=== PATIENT | male | born 1965 | race Caucasian/White ===

== ENCOUNTER 2017-04-02 17:00 | Outpatient (RCR) | payer BC, SELFPAY | END 2017-04-02 17:01 | disposition home or self-care (01) | LOC: PT 17:00 | PROVIDERS: Family Provider Family Medicine; PCP Family Medicine; Visit Provider Orthopaedic Surgery | DX: M25.511 Pain in right shoulder (principal) | CPT/HCPCS: 97010; 97014; 97016; 97033; 97035; 97110; G0283 ==

== ENCOUNTER → 2017-12-09 09:45 | Outpatient (CLI) | payer BC, SELFPAY ==
--- NOTE | 2017-12-09 09:51 | NVE_ITS ---
Venous Exam Indications: 782.3 Edema. IMPRESSIONS 1. There is no evidence of significant Reflux. 2. No evidence of deep or superficial vein thrombosis involving the right lower extremity Right lower extremity venous duplex evaluation. Doppler flow study including spectral analysis, color and kowalski scale imaging. Location: Vascular laboratory. Patient status: Outpatient. CRITICAL FINDINGS - Reported to: ZO - Read back and verified. - 12/09/17 - 1015 - NONE Tables: Venous flow and imaging: + +-------+ + Location Overall Flow properties + +-------+ + Right common femoral Patent Normal phasicity; spontaneous; normal augmentation; compressible + +-------+ + Right saphenofemoral junction Patent Compressible + +-------+ + Right profunda femoral Patent Compressible + +-------+ + Right femoral Patent Normal phasicity; spontaneous; normal augmentation; compressible + +-------+ + Right greater saphenous Patent Normal phasicity; spontaneous; normal augmentation; compressible + +-------+ + Right popliteal Patent Normal phasicity; spontaneous; normal augmentation; compressible + +-------+ + Right posterior tibial Patent Compressible + +-------+ + Right peroneal Patent Compressible + +-------+ + Right gastrocnemius Patent Compressible + +-------+ + Right soleal Patent Compressible + +-------+ + (Report amended ) Electronically signed by: Td Avilez [id number]
--- NOTE | 2017-12-09 10:22 | XR_ITS ---
XR knee RT 3V Ordering Physician: Dominique Darling Patient Age: 52 years: Male HISTORY: ITS.REASON: SWELLING RT KNEE. No trauma. TECHNIQUE: 3 views right knee COMPARISON :None FINDINGS There appears to be soft tissue swelling anterior to patellar tendon and possibly at the patellar tendon itself. Does the patient worked on these. Requires clinical correlation. Appearance suggestive of soft tissue inflammation or or fluid. Pre-Patellar inflammation or possibly bursitis in this region would be suspect particularly if the patient works on these . The joint spaces fairly well maintained but with borderline narrowing at the lateral compartment. Mild sharpening the joint margins.. Tiny pinpoint osseous density likely related to developing marginal osteophyte noted off the medial margin of the medial tibial plateau These above features may reflect some very early degenerative change at the knee. Overall Unimpressive radiographically but noted Bones well mineralized. No erosive changes. No fracture. No acute findings. Patella unremarkable on lateral view . No knee joint effusion evident at suprapatellar bursa IMPRESSION: . 1.. Soft tissue swelling anterior at the knee, most evident overlying the patellar tendon & tibial tubercle. Likely soft tissue inflammation And/or possible bursitis in this region.. Does the patient worked on his knees?? 2. No fracture. No acute osseous findings. Borderline narrowing lateral compartment No knee joint effusion.
== END ==
PROVIDERS: PCP Nurse Practitioner Family; Visit Provider Nurse Practitioner Family
DX: M79.89 Other specified soft tissue disorders (principal); M25.461 Effusion, right knee
CPT/HCPCS: 73562; 93971

== ENCOUNTER 2019-12-13 14:11 | Emergency (ER) | payer BC, SELFPAY ==
[2019-12-13 14:14] VITALS: BP 170/108; PULSE 74; RESP 18; O2SAT 99; BMI 22.9
--- NOTE | 2019-12-13 14:14 | XR_ITS ---
PROCEDURE: XR HAND LT MIN 3V CLINICAL INDICATION: partial amputation COMPARISON: No exams were available for comparison FINDINGS: There is a surgical dressing seen wrapped around the thumb. There is in incomplete fracture distal shaft of the distal phalanx just proximal to the terminal tuft with tiny bone fragments within the soft tissues and this may be secondary to a chain saw or hand saw incident. There is apparent laceration to the soft tissues of the volar surface of the thumb. There is an additional tiny corner chip fracture at the base of the distal phalanx as well. This could be a non recent fracture however. First metacarpal and proximal phalanx appear intact. The remaining metacarpals in all phalanges are intact. IMPRESSION: Comminuted fracture and evidence of soft tissue injury involving the distal phalanx of the thumb Dictated by: Dr. Darrion Cuenca MD 12/13/2019 14:41 Dr. Darrion Cuenca MD in [place] 12/13/2019 14:41
--- NOTE | 2019-12-13 14:38 | HMH.EDGENADL ---
ED Disposition Clinical Impression: Laceration, Avulsion of skin Disposition: Home, Self-Care Condition on Discharge: Good Additional Instructions: Dress the wound with wet to dry dressings 2 times per day (see instructions). Take the keflex to prevent infection. Follow up with Dr. [facility] - call [phone] to make an appointment. Return with any concerns or signs of infection. Prescriptions: cephALEXin [Keflex 500mg Cap] 500 mg PO QID 7 Days #28 cap Prescription Printed Hydrocodone/Acetaminophen [Bokeelia 5-325 Tablet] 1 each PO NEEDED PRN 2 Days #4 tab PRN Reason: Severe Pain Prescription Printed Referrals: Giovanny Delacruz MD [Primary Care Provider] - - Critical Care Critical Care Time: No Attestation: On 12/13/19, the high probability of a clinically significant, sudden or life threatening deterioration of the following system(s) required my full and direct attention, intervention and personal management. The time I documented below is in addition to time spent performing reported procedures but includes the following listed in this critical care notation. Medical Decision Making - Medical Records Medical records reviewed: Yes: I reviewed the patient's medical records. - Rafiq Inquiry Pt receiving controlled substance: No Vital Signs: 12/13/19 14:14 12/13/19 14:41 12/13/19 15:10 Temperature Temperature Source Pulse Rate Pulse Rate [Right Brachial] 74 67 61 Respiratory Rate 18 Blood Pressure Blood Pressure [Right Arm] 170/108 H 162/104 H 151/89 H Blood Pressure Mean [Right Arm] 128 123 109 Blood Pressure Source Blood Pressure Source [Right Arm] Automatic Cuff Automatic Cuff Automatic Cuff Blood Pressure Position Blood Pressure Position [Right Arm] Sitting Sitting Sitting 02 Sat by Pulse Oximetry 99 97 97 Oxygen Delivery Method Room Air Room Air 12/13/19 16:44 12/13/19 16:45 Temperature 97.8 F Temperature Source Oral Pulse Rate 67 Pulse Rate [Right Brachial] 64 Respiratory Rate 16 Blood Pressure 125/92 H Blood Pressure [Right Arm] 125/92 H Blood Pressure Mean [Right Arm] 103 Blood Pressure Source Automatic Cuff Blood Pressure Source [Right Arm] Automatic Cuff Blood Pressure Position Sitting Blood Pressure Position [Right Arm] Sitting 02 Sat by Pulse Oximetry 98 Oxygen Delivery Method Room Air Room Air Orders (Tests/Meds): ED MEDICATIONS Discontinued Medications Generic Name Dose Route Start Last Admin Trade Name Shanae PRN Reason Stop Dose Admin Hydrocodone Bitart/Acetaminophen 1 tab 12/13/19 14:15 12/13/19 14:25 Hydrocodone/Apap 5/325 Mg Tablet PO 12/13/19 14:16 1 tab ONCE ONE Administration Cefazolin Sodium 2 gm/ Sodium 100 mls @ 200 mls/hr 12/13/19 14:15 12/13/19 14:26 Chloride IV 12/13/19 14:44 200 mls/hr ONCE ONE Administration Protocol Medical Decision Narrative: The patient is a 54 year old male who presents to the ED with left finger laceration. He is awake and alert. Tetanus UTD. Given 5 mg norco PO for pain. He has a large avulsion of soft tissue on the distal left thumb without involvement of the nail bed. He was given 2 grams of ancef for possible open fracture. X-ray of the hand was obtained and showed a comminuted distal phalanx fracture underlying the soft tissue injury. Discussed this case with hand surgery button riveter at , Dr. Abdul, who recommends closure here in the ED, placing the patient on keflex, and following up in clinic in 2 days. Discussed with patient who is in agreement. Laceration was repaired by myself - see note for details. Discharged home in good condition. General Adult HPI - General Chief complaint: Wound/Laceration Stated complaint: laceration Time Seen by Provider: 12/13/19 14:14 Mode of Arrival: Ambulatory Limitations: No Limitations Description of Symptoms (Recalled from ER Triage Doc. by RN): Patient reports he cut his left thumb with his a t
[2019-12-13 14:41] VITALS: BP 162/104; PULSE 67; O2SAT 97
[2019-12-13 15:10] VITALS: BP 151/89; PULSE 61; O2SAT 97
--- NOTE | 2019-12-13 15:22 | PC.NURSE ---
at bedside suturing.
--- NOTE | 2019-12-13 15:51 | PC.NURSE ---
v/s delayed due to suturing
[2019-12-13 16:44] VITALS: BP 125/92; PULSE 67; RESP 16; TEMP 36.6; O2SAT 98
[2019-12-13 16:45] VITALS: BP 125/92; PULSE 64; O2SAT 98
== END 2019-12-13 17:04 | disposition home or self-care (01) ==
PROVIDERS: Emergency Provider Emergency Medicine; PCP Family Medicine
DX: S61.012A Laceration without foreign body of left thumb without damage to nail, initial encounter (principal); W31.2XXA Contact with powered woodworking and forming machines, initial encounter; Y92.89 Other specified places as the place of occurrence of the external cause; Z88.0 Allergy status to penicillin; Z88.5 Allergy status to narcotic agent
CPT/HCPCS: 12001; 73130; 96374; 99283

== ENCOUNTER → 2020-02-22 18:27 | Outpatient (CLI) | payer BC, SELFPAY ==
--- NOTE | 2020-02-22 18:37 | XR_ITS ---
PROCEDURE: XR SHOULDER RT MIN 2V CLINICAL INDICATION: SHOULDER PAIN COMPARISON: No exams were available for comparison FINDINGS: No fracture or dislocation. No lytic or blastic change. There is normal mineralization. There postsurgical changes with anchor screws at the acromion and proximal humerus. Lucency is noted in the a acromion distally and may be due to surgical defect. There is some faint calcification overlying the humeral head suggesting calcific tendinitis. Mild calcification noted along the inferior aspect of the neck of the acromion. IMPRESSION: As above, postsurgical change, no acute finding, possible calcific tendinitis. There is some calcification along the proximal aspect of the acromion possibly related to periosteal reaction etiology indeterminate. There are no previous exams available for comparison. CT may provide further evaluation Dictated by: Juan Shaver MD 02/23/2020 05:56 Juan Shaver MD in [place] 02/23/2020 05:56
== END ==
PROVIDERS: PCP Family Medicine; Visit Provider Family Medicine
DX: M25.511 Pain in right shoulder (principal); Z98.890 Other specified postprocedural states
CPT/HCPCS: 73030

== ENCOUNTER → 2020-04-11 07:42 | Outpatient (CLI) | payer BC, SELFPAY ==
--- NOTE | 2020-04-11 07:42 | MR_ITS ---
PROCEDURE: MR SHOULDER RT WO CON CLINICAL INDICATION: evaluate for rotator cuff tear Hx right shoulder surgery x20yrs ago on rotator cuff. Pt had a tumor removed between back and shoulder x3yrs ago. Rt shoulder pain with no strength. Pain when raising arm above head. No injury. Prior x-ray 02-22-20 COMPARISON: CR XR SHOULDER RT MIN 2V from 02/22/2020 TECHNIQUE: Routine multiplanar multi echo sequences are performed without gadolinium enhancement. FINDINGS: There are postsurgical changes with extensive artifact. Metallic anchors are present at the a chromium and the proximal humerus causing extensive artifact. There does not appear to be any evidence of complete rotator cuff tear with musculotendinous retraction. There is mild thickening of the subscapularis tendon consistent with tendinopathy/tendinosis. Bicipital tendon is in place within the bicipital groove. No obvious labral tear. Mild osteoarthritic changes are present at the glenohumeral joint. On the radiograph there was questionable periosteal reaction along the base of the acromion. This area is not well delineated due to overlying artifact. IMPRESSION: Extensive artifact from postsurgical changes. There does not appear to be a complete rotator cuff tear. Tendinopathy/tendinosis noted in the subscapularis tendon. Small joint effusion with mild osteoarthritic change Dictated by: Juan Shaver MD 04/13/2020 09:09 Juan Shaver MD in [place] 04/13/2020 09:09
== END ==
PROVIDERS: PCP Family Medicine; Visit Provider Orthopaedic Surgery
DX: M25.511 Pain in right shoulder (principal); G89.29 Other chronic pain
CPT/HCPCS: 73221

== ENCOUNTER → 2020-05-10 09:51 | Outpatient (CLI) | payer BC, SELFPAY ==
--- NOTE | 2020-05-10 09:59 | XR_ITS ---
PROCEDURE: XR SHOULDER RT MIN 2V CLINICAL INDICATION: right shoulder pain COMPARISON: CR XR SHOULDER RT MIN 2V from 02/22/2020 FINDINGS: Postsurgical changes with the prior rotator cuff repair is noted. There is minor cortical irregularity of the acromion with surgical anchors noted. No evidence of acute fractures or dislocations. Bone density is normal. Minor degenerative changes of the glenohumeral joint. No significant soft tissue abnormality. Visualized right hemithorax is unremarkable. IMPRESSION: Postsurgical changes in the right shoulder joint. Minor cortical irregularity of the acromion with surgical anchors noted. This may be related to prior surgery versus degenerative changes. Dictated by: Oneida Mcclendon 05/10/2020 13:50 Oneida Mcclendon in [place] 05/10/2020 13:50
--- NOTE | 2020-05-10 09:59 | XR_ITS ---
PROCEDURE: XR SHOULDER LT MIN 2V CLINICAL INDICATION: Lt shoulder pain COMPARISON: CR XR SHOULDER RT MIN 2V from 02/22/2020 FINDINGS: No acute fractures or dislocations. There are few lucencies noted in the left humeral head. These may represent subchondral cystic changes. No periarticular calcification. Acromioclavicular joint is unremarkable. Bone density is normal. Visualized left hemithorax is unremarkable. IMPRESSION: Few lucencies noted in the humeral head, may be related to degenerative changes.Correlation with clinical history of surgery of the left shoulder joint suggested. Dictated by: Oneida Mcclendon 05/10/2020 10:43 Oneida Mcclendon in [place] 05/10/2020 10:43
== END ==
PROVIDERS: PCP Family Medicine; Visit Provider Orthopaedic Surgery
DX: M25.511 Pain in right shoulder (principal); M25.512 Pain in left shoulder
CPT/HCPCS: 73030

== ENCOUNTER 2020-05-10 10:24 | Outpatient (RCR) | payer BC, SELFPAY | END 2020-05-10 11:20 | disposition home or self-care (01) | LOC: OT 10:24 | PROVIDERS: Visit Provider Orthopaedic Surgery | DX: G56.03 Carpal tunnel syndrome, bilateral upper limbs (principal) | CPT/HCPCS: 97763 ==

== ENCOUNTER 2020-09-11 09:12 | Emergency (ER) | payer BC, SELFPAY ==
[2020-09-11 09:29] VITALS: PULSE 66; RESP 14; TEMP 36.9; O2SAT 99; BMI 23.6
[2020-09-11 09:38] VITALS: BP 000/00; PULSE 66; RESP 12; TEMP 36.9
--- NOTE | 2020-09-11 10:39 | HMH.EDUTC ---
[facility] [place] Clinical Impression: Exposure to COVID-19 virus Disposition: Home, Self-Care Condition on Discharge: Good Instructions: Preventing the Spread of Coronavirus Discharge Instructions Additional Instructions: Drink plenty of fluids. Take tylenol for pain or fever. Return if you begin to have difficulty breathing. Follow up with your regular doctor. GO TO THE ER FOR ANY WORSENING SYMPTOMS Referrals: Socorro Mast MD [Primary Care Provider] - Time of Disposition: 10:39 Medical Decision Making - Medical Records Medical records reviewed: No: I reviewed the patient's medical records. - Rafiq Inquiry Pt receiving controlled substance: No Vital Signs: 09/11/20 09:29 09/11/20 09:38 Temperature 98.5 F 98.5 F Temperature Source Oral Pulse Rate 66 Pulse Rate [Left] 66 Respiratory Rate 14 12 Blood Pressure 000/00 L 02 Sat by Pulse Oximetry 99 [facility] [place] HPI - General Stated complaint: Covid Test Time Seen by Provider: 09/11/20 09:35 Mode of Arrival: Ambulatory Source of Information: Patient Limitations: No Limitations Description of Symptoms (Recalled from Triage Doc. by RN): pt was directly exposed to covid positive pt last tu. pt is asymptomatic. HEENT Symptoms (Recalled from RN notes): No Resp Symptoms (Recalled from RN notes): No Skin Symptoms (Recalled from RN notes): No MS Symptoms (Recalled from RN notes): No Functional Status (Recalled from RN notes): na - History of Present Illness Provider Complaint: She is here to have a covid test after an exposure. She denies any symptoms so far. - Related Data Home Medications Medication Instructions Recorded Confirmed No Known Home Medications 05/10/20 05/10/20 Allergies Allergy/AdvReac Type Severity Reaction Status Date / Time Penicillins Allergy Unknown Verified 05/10/20 09:26 morphine [MORPHINE] AdvReac Unknown NA-NAUSEA Verified 05/10/20 09:26 - Worker's Comp Is this a Worker's Comp case?: No [facility] History - Hepatitis A Screen Drug use history?: No High risk sexual behaviors?: No History of sexually transmitted infection?: No Currently employed?: No Childcare worker?: No Do you have indoor plumbing?: Yes Do you have electricity?: Yes Attestation statement:: This patient has been screened for Hepatitis A risk factors. I have reviewed the patient's past medical history: Yes Other Surgeries: Yes: Colonoscopy - Social History Smoking Status: Never smoker Alcohol Intake: never Occupational Status: retired Housing: house Household Members: spouse Family Hx:: No significant family history ROS Obtained: Yes All systems reviewed & no additional complaints - Constitutional Constitutional: Reports system reviewed and no additional complaints, except as docu - Eyes Eyes: Reports system reviewed and no additional complaints, except as docu - ENT Ears, Nose, Mouth, and Throat: Reports system reviewed and no additional complaints, except as docu - Cardiovascular Cardiovascular: Reports system reviewed and no additional complaints, except as docu - Respiratory Respiratory: Reports system reviewed and no additional complaints, except as docu - Gastrointestinal Gastrointestingal: Reports: system reviewed and no additional complaints, except as docu Physical Exam - General General appearance: alert, in no apparent distress - Head Head exam: atraumatic, normocephalic, normal inspection - Eye Eye exam: Present: normal appearance, PERRL, EOMI - ENT ENT exam: Present: normal exam, normal oropharynx, mucous membranes moist, TM's normal bilaterally, normal external ear exam - Neck Neck exam: Present: normal inspection, full ROM, trachea midline. Absent: meningismus, lymphadenopathy - Chest Chest inspection: Present: normal inspection, symmetric chest wall rise. Absent: tenderness - Respiratory Respiratory exam: Present: normal lung sounds bilaterally. Absent: respiratory distress
== END 2020-09-11 10:48 | disposition home or self-care (01) ==
PROVIDERS: Emergency Provider Nurse Practitioner Family; PCP Family Medicine
DX: Z20.822 Contact with and (suspected) exposure to COVID-19 (principal); Z88.0 Allergy status to penicillin; Z88.5 Allergy status to narcotic agent
CPT/HCPCS: 99202; G0463; U0003

== ENCOUNTER 2020-10-29 15:58 | Emergency (ER) | payer BC, SELFPAY ==
[2020-10-29 17:39] VITALS: BP 169/106; PULSE 61; RESP 16; TEMP 36.7; O2SAT 98; BMI 23.6
--- NOTE | 2020-10-29 17:44 | CT_ITS ---
PROCEDURE INFORMATION: Exam: CT Head Without Contrast Exam date and time: 10/29/2020 5:44 PM Age: 55 years old Clinical indication: Pain; Headache not specified; Additional info: Headache went to eye Dr today and had eyes dilated TECHNIQUE: Imaging protocol: Computed tomography of the head without contrast. Radiation optimization: All CT scans at this facility use at least one of these dose optimization techniques: automated exposure control; mA and/or kV adjustment per patient size (includes targeted exams where dose is matched to clinical indication); or iterative reconstruction. COMPARISON: [facility] CT CERVICAL SPINE W/O CONT 02/23/2015 8:31 AM FINDINGS: Brain: Normal. No hemorrhage. Unremarkable white matter. No mass effect. Cerebral ventricles: No ventriculomegaly. Paranasal sinuses: Visualized sinuses are unremarkable. No fluid levels. Mastoid air cells: Visualized mastoid air cells are well aerated. Vasculature: Intraranial artery density is normal. Bones/joints: Unremarkable. No acute fracture. Soft tissues: Unremarkable. IMPRESSION: No acute intracranial abnormality.
--- NOTE | 2020-10-29 17:44 | ECG_ITS ---
APPROVED REPORT Exam: Resting ECG HR:63 bpm ECG Measurements Heart Rate 63 AXES MI 152 P 68 QRSd 100 QRS 63 QT 390 T 19 QTc 399 Conclusion Normal sinus rhythm Minimal voltage criteria for LVH, may be normal variant Borderline ECG Electronically signed by : Giovanny Limon MD 10/30/2020 08:56:02
--- NOTE | 2020-10-29 17:44 | XR_ITS ---
PROCEDURE INFORMATION: Exam: XR Chest Exam date and time: 10/29/2020 5:44 PM Age: 55 years old Clinical indication: Pain; Chest pressure TECHNIQUE: Imaging protocol: XR of the chest. Views: 1 view. COMPARISON: CR CXR CHEST(2 VIEWS-NOT PORTABLE) 10/24/2015 8:47 AM FINDINGS: Lungs: Unremarkable. No consolidation. Pleural spaces: Unremarkable. No pleural effusion. No pneumothorax. Heart/Mediastinum: Unremarkable. No cardiomegaly. Bones/joints: There is an age indeterminate superior endplate compression deformity of T10. This patient is status post right rotator cuff surgery. IMPRESSION: No acute findings.
[2020-10-29 18:05] LABS: Basophils % 0.4 % (0.1-2.0); Eosinophils # 0.2 K/mm3 (0.0-0.4); Eosinophils % 2.3 % (0.1-12.0); Hematocrit 46.8 % (42.0-52.0); Hemoglobin 15.3 g/dL (14.1-18.0); Lymphocytes # 4.7 K/mm3 (0.7-4.5); Mean Corpuscular HGB Conc 32.7 g/dL (31.8-35.4); Mean Corpuscular Volume 94.9 fl (80-94); Mean Platelet Volume 7.2 fl (7.4-10.4); Monocytes # 0.5 K/mm3 (0.1-1.0); Monocytes % 6.7 % (1.7-9.3); Neutrophils # 2.5 K/mm3 (1.8-7.8); Neutrophils % 31.5 % (37.0-80.0); Platelet Count 299 K/mm3 (142-424); Red Blood Count 4.93 M/mm3 (4.60-6.20); Red Cell Distribution Width 12.1 % (11.5-17.5); White Blood Count 7.9 K/mm3 (4.8-10.8)
[2020-10-29 18:09] LABS: MANUAL DIFFERENTIAL MANUAL DIFFERENTIAL (MANUAL DIFF)
[2020-10-29 18:12] LABS: Chloride 104 mmol/L (98-107); Potassium 4.1 mmoL/L (3.5-5.1); Sodium 138 mmol/L (136-145)
[2020-10-29 18:14] LABS: Alanine Aminotransferase 16 U/L (12-78); Aspartate Amino Transferase 22 U/L (17-59); Blood Urea Nitrogen 17 mg/dl (9-20); Creatinine Clearance Estimated 106 mL/min (50-200); Estimated Glomerular Filt Rate 100 ml/min (>60); GFR (African American) 121 ML/MIN (>60)
[2020-10-29 18:15] LABS: Albumin Level 3.5 g/dl (3.5-5.0); Albumin/Globulin Ratio 1.1 (1.1-1.8); Alkaline Phosphatase 73 U/L (38-126); Anion Gap 10.1 mEq/L (5-15); Bilirubin,Total 0.3 mg/dl (0.2-1.3); Calcium 8.8 mg/dl (8.4-10.2); Carbon Dioxide 28 mmol/L (22.0-30.0); Globulin 3.1 g/dL (1.3-3.2); Glucose 95 mg/dl (74-100); Total Protein,Serum 6.6 g/dl (6.3-8.2)
[2020-10-29 18:20] LABS: Eosinophils % 3 % (0-3); Lymphocytes % 42 % (10-50); Monocytes % 3 % (2-9); Neutrophils % 52 % (42-76); Total Cells Counted 100
[2020-10-29 18:21] LABS: Platelet Estimate Normal; RBC Morphology Normal
[2020-10-29 18:29] LABS: Troponin I < 0.01 ng/ml (0.00-0.034)
--- NOTE | 2020-10-29 19:26 | PC.NURSE ---
on phone with dr arias @ this time
[2020-10-29 19:38] LABS: Adenovirus,PCR Not Detected (NotDetected); Bordetella Pertussis Not Detected (NotDetected); Chlamydophila Pneumoniae, PCR Not Detected (NotDetected); Coronavirus 19, PCR Not Detected (NotDetected); Coronavirus 229E Not Detected (NotDetected); Coronavirus NL63 Not Detected (NotDetected); Coronavirus OC43 Not Detected (NotDetected); Coronovirus HKU1,PCR Not Detected (NotDetected); Human Metapneumovirus Not Detected (NotDetected); Influenza A, PCR Not Detected (NotDetected); Influenza AH1, 2009 Not Detected (NotDetected); Influenza AH1, PCR Not Detected (NotDetected); Influenza AH3,PCR Not Detected (NotDetected); Influenza B, PCR Not Detected (NotDetected); Mycoplasma Pneumoniae, PCR Not Detected (NotDetected); Parainfluenza 1, PCR Not Detected (NotDetected); Parainfluenza 2, PCR Not Detected (NotDetected); Parainfluenza 3, PCR Not Detected (NotDetected); Parainfluenza 4, PCR Not Detected (NotDetected); Respiratory Syncytial Virus Not Detected (NotDetected); Rhinovirus/Enterovirus Not Detected (NotDetected)
--- NOTE | 2020-10-29 19:57 | HMH.EDGENADL ---
ED Disposition Clinical Impression: Uveitis of left eye, Folliculitis, Fatigue after COVID-19 vaccination Disposition: Home, Self-Care Condition on Discharge: Fair Instructions: DI for Muscle Weakness, DI for Folliculitis, DI for Anterior Uveitis Prescriptions: Sulfamethoxazole/Trimethoprim [Bactrim DS tablet] 1 each PO BID 7 Days #14 tab Prescription Printed Referrals: Socorro Mast MD [Primary Care Provider] - 10/31/20 - Critical Care Critical Care Time: No Attestation: On 10/29/20, the high probability of a clinically significant, sudden or life threatening deterioration of the following system(s) required my full and direct attention, intervention and personal management. The time I documented below is in addition to time spent performing reported procedures but includes the following listed in this critical care notation. Medical Decision Making - Medical Records Medical records reviewed: Yes: I reviewed the patient's medical records. - Rafiq Inquiry Pt receiving controlled substance: No Vital Signs: 10/29/20 17:39 Temperature 98.1 F Temperature Source Oral Pulse Rate [Radial] 61 Respiratory Rate 16 Blood Pressure [Right Arm] 169/106 H Blood Pressure Mean [Right Arm] 127 Blood Pressure Position [Right Arm] Sitting 02 Sat by Pulse Oximetry 98 Oxygen Delivery Method Room Air - Lab Data Lab Results 10/29/20 17:54: WBC 7.9, RBC 4.93, Hgb 15.3, Hct 46.8, MCV 94.9 H, MCH 31.0, MCHC 32.7, RDW 12.1, Plt Count 299, MPV 7.2 L, Neut % (Auto) 31.5 L, Lymph % (Auto) 59.0 H, [place] % (Auto) 6.7, Eos % (Auto) 2.3, Baso % (Auto) 0.4, Neut # (Auto) 2.5, Lymph # (Auto) 4.7 H, [place] # (Auto) 0.5, Eos # (Auto) 0.2, Baso # (Auto) 0.0, Total Counted 100, Neutrophils % (Manual) 52, Lymphocytes % (Manual) 42, Monocytes % (Manual) 3, Eosinophils % (Manual) 3, Platelet Estimate Normal, RBC Morphology Normal 10/29/20 17:54: Sodium 138, Potassium 4.1, Chloride 104, Carbon Dioxide 28, Anion Gap 10.1, BUN 17, Creatinine 0.80, Estimated Creat Clear 106, Estimated GFR 100, Est GFR ( Amer) 121, Glucose 95, Calcium 8.8, Total Bilirubin 0.3, AST 22, ALT 16, Alkaline Phosphatase 73, Troponin I < 0.01, Total Protein 6.6, Albumin 3.5, Globulin 3.1, Albumin/Globulin Ratio 1.1 Result diagrams: 10/29/20 17:54 10/29/20 17:54 Orders (Tests/Meds): ED MEDICATIONS Generic Name Dose Route Start Last Admin Trade Name Freq PRN Reason Stop Dose Admin Lactated Ringer's 1,000 mls @ 999 mls/hr 10/29/20 19:45 10/29/20 19:43 Lactated Ringer's 1000 Ml Bag IV 10/29/20 20:45 999 mls/hr .Q1H1M ALONZO Administration Discontinued Medications Generic Name Dose Route Start Last Admin Trade Name Freq PRN Reason Stop Dose Admin Ketorolac Tromethamine 30 mg 10/29/20 19:38 10/29/20 19:43 Ketorolac 30mg/Ml Vial IV 10/29/20 19:39 30 mg ONCE ONE Administration ORDERS Category Date Time Status Full Resp Panel w/COVID ([facility]) Routine Lab 10/29/20 19:30 Received Troponin I Q3H Lab 10/29/20 20:45 Ordered Troponin I Q3H Lab 10/29/20 23:45 Ordered No evidence of abnormality on chest x-ray or CT head Medical Decision Narrative: 55-year-old male who presents to the emergency department with multiple vague complaints. Patient has complaints of left eye pain, diffuse, itchy papular rash with evidence of drainage from some papules. Lethargy, fatigue, and general weakness as well as this ocular pain without swelling or vision change. Patient was seen by putty maker today, so they were called for full details of patient's visit. Patient appears to have evidence of uveitis for which she was prescribed steroid drops. Given this information as well as patient's vague complaints of weakness, fatigue, and general malaise, concern was given to autoimmune diseases. Evidence of abnormalities on CT head or chest x-ray, and labs are very benign aside from mild leukocytosis to 15 which could be related to new steroid drops versus
[2020-10-29 21:07] VITALS: BP 168/95; PULSE 61; RESP 14; TEMP 37.1
== END 2020-10-29 21:14 | disposition home or self-care (01) ==
PROVIDERS: Emergency Provider Emergency Medicine; PCP Family Medicine
DX: H20.012 Primary iridocyclitis, left eye (principal); T50.Z95A Adverse effect of other vaccines and biological substances, initial encounter; R53.83 Other fatigue; R06.02 Shortness of breath; R51.9 Headache, unspecified
CPT/HCPCS: 70450; 71045; 80053; 84484; 85007; 85025; 87581; 87632; 87798; 93005; 96365; 99283; C9803; U0003; U0005

== ENCOUNTER → 2020-12-26 07:32 | Outpatient (CLI) | payer BC, SELFPAY | PROVIDERS: Visit Provider Family Medicine | DX: R51.9 Headache, unspecified (principal); R50.9 Fever, unspecified; R53.82 Chronic fatigue, unspecified; M25.50 Pain in unspecified joint | CPT/HCPCS: 36415 ==

== ENCOUNTER 2021-12-23 09:48 | Emergency (ER) | payer BC, SELFPAY ==
[2021-12-23 10:45] VITALS: BP 128/87; PULSE 73; RESP 21; TEMP 36.7; O2SAT 99; BMI 24.3
[2021-12-23 11:05] LABS: UTC Influenza A Antigen Positive (Negative)
[2021-12-23 11:06] LABS: UTC Influenza B Antigen Negative (Negative)
--- NOTE | 2021-12-23 11:19 | EXP.UTC ---
Discharge Plan Disposition Patient Disposition: Home, Self-Care Condition: Good Prescriptions Prescriptions: New oseltamivir [Tamiflu] 75 mg capsule 75 mg PO BID 5 Days Qty: 10 0RF kaomqgswhaujizv-fawfujtjj-VU [Bromfed DM] 2-30-10 mg/5 mL syrup 10 ml PO Q6H PRN (Reason: cold symptoms and cough) Qty: 200 0RF ondansetron 4 mg tablet,disintegrating 4 mg PO Q8H PRN (Reason: nausea and vomiting) Qty: 10 0RF No Action sulfamethoxazole-trimethoprim 1 EACH tablet 1 each PO BID 7 Days Qty: 14 0RF Referrals Follow up/Referrals: Socorro Mast MD [Primary Care Provider] - See instructions Activity Restrictions/Add. Instructions Additional Instructions/Restrictions: Start Tamiflu today if you are going to take it. Discussed risk and possible benefits. Lots of rest Increase Fluids water, Gatorade, powerade, pedialyte,if /toddler/child Alternate Tylenol and / or ibuprofen as discussed for fever, aches, chills Follow up IMMEDIATELY with your family doctor for new or worsening Symptoms OR no noticeable improvement over the next 48-72 hours, 911 for difficulty or breathing You or your child area contagious until no fever, aches, chills for 24 hours with medication for symptoms Help Prevent the spread of influenza: ?Wash your hands often. Use soap and water. Wash your hands after you use the bathroom, change a child's diapers, or sneeze. Wash your hands before you prepare or eat food. Use gel hand cleanser that has 60% alcohol, when soap and water are not available. Do not touch your eyes, nose, or mouth unless you have washed your hands first. Cover your mouth when you sneeze or cough. Cough into a tissue or the bend of your arm. If you use a tissue, throw it away immediately and wash your hands. Clean shared items with a germ-killing bottle packing machine cleaner. Clean table surfaces, doorknobs, and light switches. Do not share towels, silverware, and dishes with people who are sick. Wash bed sheets, towels, silverware, and dishes with soap and water. Wear a mask over your mouth and nose if you are sick. The face mask may help protect others from becoming infected with the flu. Wear the mask when in common areas of your home or if you seek care with a healthcare provider. Stay away from others if you are sick. Stay at home until 24 hours after your fever and symptoms are gone. Clinical Impressions Clinical Impression: Influenza A Stand Alone Forms Stand Alone Forms: Work/School Release Instructions Patient Instructions: Influenza, DI for Influenza -- Adult Discharge ED Provider: Loli Chisholm [facility] [place] HPI General Stated complaint: NAGY, Chest congestion, BA Mode of Arrival: Ambulatory Source of Information: Patient Limitations: No Limitations Time Seen by Provider: 12/23/21 11:19 Description of Symptoms (Recalled from Triage Doc. by RN): PATIENT C/O FEVER, VOMITING, COUGH, CONGESTION AND BODY ACHES X 2 DAYS HEENT Symptoms (Recalled from RN notes): No Resp Symptoms (Recalled from RN notes): Yes Skin Symptoms (Recalled from RN notes): No MS Symptoms (Recalled from RN notes): No Functional Status (Recalled from RN notes): WNL History of Present Illness Provider Complaint: Patient states that for the last couple of days he has not been feeling well States that he has been having body aches, chills, headache N/V nd cough State that he took COVID test at home and it was negative worried he may have the flu Related Data Previous Rx's Medication Instructions Recorded sulfamethoxazole 800 1 each PO BID 7 days #14 tabs 10/29/20 mg-trimethoprim 160 mg tablet opapvlxmtsnywdb-oondxidkscqmhgw-CW 10 ml PO Q6H PRN cold symptoms and 12/23/21 2 mg-30 mg-10 mg/5 mL oral syrup cough #200 mL (Bromfed DM) ondansetron 4 mg disintegrating 4 mg PO Q8H PRN nausea and 12/23/21 tablet
[2021-12-23 11:38] VITALS: BP 128/87; PULSE 73; RESP 21; TEMP 36.7; O2SAT 99
== END 2021-12-23 11:42 | disposition home or self-care (01) ==
PROVIDERS: Emergency Provider Nurse Practitioner; PCP Family Medicine
DX: J10.1 Influenza due to other identified influenza virus with other respiratory manifestations (principal)
CPT/HCPCS: 87804; 99212; G0463

== ENCOUNTER 2022-01-07 07:58 | Emergency (ER) | payer BC, SELFPAY ==
[2022-01-07 08:15] VITALS: BP 138/94; PULSE 67; RESP 20; TEMP 36.7; O2SAT 99; BMI 22.4
--- NOTE | 2022-01-07 08:24 | EXP.UTC ---
Discharge Plan Disposition Patient Disposition: Home, Self-Care Condition: Good Prescriptions Prescriptions: New guaifenesin [Mucinex] 600 mg tablet extended release 12hr 600 mg PO BID PRN (Reason: cough) Qty: 20 0RF azithromycin [Zithromax Z-Patricio] 250 mg tablet See Rx Instructions .ROUTE .COMPLEX 5 Days Qty: 6 0RF Rx Instructions: For 250 mg dose pack: take 500 mg today (day 1), then 250 mg for 4 days (days 2-5) prednisone [prednisone] 20 mg tablet 20 mg PO BID 5 Days Qty: 10 0RF meclizine 25 mg tablet 25 mg PO TID PRN (Reason: dizziness) Qty: 15 0RF Referrals Follow up/Referrals: Socorro Mast MD [Primary Care Provider] - See instructions Activity Restrictions/Add. Instructions Additional Instructions/Restrictions: Start antibiotic today. Be sure to complete entire prescription even if feeling better Monitor temp. Tylenol every 4 hours as needed and / or ibuprofen every 6 hours as needed ( As long as your primary care physician has told you that it ok to take both. For fever/aches/pains ER if no less than 101 despite Tylenol or Motrin Humidifier/vaporizer or hot steamy shower Mucinex for your cough and chest congestion Be sure to drink lots of water. *Start steroid today. Helps with inflammation therefore, cough and wheezing. Follow directions on the package. Reviewed side effects. Patient reports taking them before. Follow up IMMEDIATELY for new or worsening of symptoms OR no noticeable improvement over the next 48-72 hours. 911 immediately for any life threatening symptoms such as chest pain or difficulty breathing Clinical Impressions Clinical Impression: Bronchitis Instructions Patient Instructions: DI for Vertigo, Vertigo, Acute Bronchitis Discharge ED [place]oli Chishol[place] [facility] [place] General Stated complaint: chest congestion, cough Time Seen by Provider: 01/07/22 08:24 History of Present Illness Provider Complaint: Patient states that he had the flu a couple weeks ago State that since he has been having chest congestion, cough, and yesterday he felt a little off balance and dizzy when he got out of bed then he felt OK and State that he hasnt done that since State that he just feels like he is congested in his chest and ears feel full and worried that he may have bronchitis or something Related Data Previous Rx's Medication Instructions Recorded azithromycin 250 mg tablet See Rx Instructions PO .COMPLEX 5 01/07/22 (Zithromax Z-Patricio) days #6 tabs guaifenesin 600 mg tablet, 600 mg PO BID PRN cough #20 tabs 01/07/22 extended release 12 hr (Mucinex) meclizine 25 mg tablet 25 mg PO TID PRN dizziness #15 tabs 01/07/22 prednisone 20 mg tablet 20 mg PO BID 5 days #10 tabs 01/07/22 Allergies Allergy/AdvReac Type Severity Reaction Status Date / Time Penicillins Allergy Unknown Verified 05/10/20 09:26 morphine [MORPHINE] AdvReac Unknown NA-NAUSEA Verified 05/10/20 09:26 [facility] Medical History (Updated 01/07/22 @ 08:56 by Loli Chisholm APRN) Finger fracture Migraine Surgical History History of repair of rotator cuff Social History (Updated 01/07/22 @ 08:32 by Rianna Mullins RN) Smoking Status: Never smoker alcohol intake: never current occupational status: retired and other Travel in the last 8 weeks: None household members: spouse housing: house ROS Obtained: Yes All systems reviewed & no additional complaints except as documented and Yes Systems reviewed as appropriate & no additional complaints except as documented Constitutional Constitutional: Reports system reviewed and no additional complaints, except as documented and Reports as per HPI ENT Ears, Nose, Mouth, and Throat: Reports system reviewed and no additional complaints, except as documented, Reports as per HPI and Reports dizziness (yesterday when he got out of bed thinks he miranda
[2022-01-07 08:42] VITALS: BP 138/94; PULSE 67; RESP 20; TEMP 36.7; O2SAT 99
[2022-01-07 08:47] LABS: Adenovirus,PCR Not Detected (NotDetected); Bordetella Pertussis Not Detected (NotDetected); Chlamydophila Pneumoniae, PCR Not Detected (NotDetected); Coronavirus 19, PCR Not Detected (NotDetected); Coronavirus 229E Not Detected (NotDetected); Coronavirus NL63 Not Detected (NotDetected); Coronavirus OC43 Not Detected (NotDetected); Coronovirus HKU1,PCR Not Detected (NotDetected); Human Metapneumovirus Not Detected (NotDetected); Influenza A, PCR Not Detected (NotDetected); Influenza AH1, 2009 Not Detected (NotDetected); Influenza AH1, PCR Not Detected (NotDetected); Influenza AH3,PCR Not Detected (NotDetected); Influenza B, PCR Not Detected (NotDetected); Mycoplasma Pneumoniae, PCR Not Detected (NotDetected); Parainfluenza 1, PCR Not Detected (NotDetected); Parainfluenza 2, PCR Not Detected (NotDetected); Parainfluenza 3, PCR Not Detected (NotDetected); Parainfluenza 4, PCR Not Detected (NotDetected); Respiratory Syncytial Virus Not Detected (NotDetected); Rhinovirus/Enterovirus Not Detected (NotDetected)
== END 2022-01-07 09:00 | disposition home or self-care (01) ==
PROVIDERS: Emergency Provider Nurse Practitioner; PCP Family Medicine
DX: R42 Dizziness and giddiness (principal); R09.89 Other specified symptoms and signs involving the circulatory and respiratory systems; R05.9 Cough, unspecified; R50.9 Fever, unspecified; Z20.822 Contact with and (suspected) exposure to COVID-19; G43.909 Migraine, unspecified, not intractable, without status migrainosus; Z79.52 Long term (current) use of systemic steroids; Z88.0 Allergy status to penicillin; Z88.5 Allergy status to narcotic agent
CPT/HCPCS: 87581; 87632; 87798; 99213; C9803; G0463; U0003; U0005

== ENCOUNTER 2023-05-16 15:12 | Outpatient (CLI) | payer BC, SELFPAY ==
--- NOTE | 2023-05-16 | CA_ITS ---
FINAL REPORT TECHNIQUE: Color Doppler, duplex Doppler and compression sonography of the left lower extremity deep venous systems was performed. CLINICAL HISTORY: injury of left calf while on a ladder.swelling with pain resolved COMPARISON: None FINDINGS: There is no evidence of deep venous thrombosis from the level of the groin to the calf. The veins are patent and compressible. IMPRESSION: No evidence of deep venous thrombosis left lower extremity. Reviewed, Interpreted and Dictated by Oziel Enriquez III, MD Transcribed by Ayleen Brink Authenticated and . [facility]
== END 2023-05-16 23:59 ==
LOC: RT 15:13
PROVIDERS: PCP Family Medicine; Visit Provider Nurse Practitioner
DX: M79.662 Pain in left lower leg (principal); R60.0 Localized edema; S89.92XA Unspecified injury of left lower leg, initial encounter
CPT/HCPCS: 93971

== ENCOUNTER 2023-06-11 10:43 | Outpatient (CLI) | payer BC, SELFPAY ==
--- NOTE | 2023-06-11 10:49 | XR_ITS ---
FINAL REPORT CLINICAL HISTORY: INTERNAL DERANGEMENT OF KNEE COMPARISON: None FINDINGS: LEFT KNEE 3 views of the left knee were obtained. There is no acute fracture or dislocation. Chondrocalcinosis is noted. The joint space is preserved. There is a moderate joint effusion. Soft tissues are unremarkable. IMPRESSION: No acute bony abnormality. Joint effusion with chondrocalcinosis. Reviewed, Interpreted and Dictated by Edmar Ledezma MD Transcribed by Jyotsna Hart Authenticated and [facility] [place] [place]
== END 2023-06-11 23:59 | disposition home or self-care (01) ==
LOC: RAD 10:44
PROVIDERS: PCP Nurse Practitioner; Visit Provider Nurse Practitioner
DX: M25.562 Pain in left knee (principal); M23.92 Unspecified internal derangement of left knee
CPT/HCPCS: 73562

== ENCOUNTER 2023-08-04 19:33 | Emergency (ER) | payer BC, SELFPAY ==
[2023-08-04] VITALS (8 sets, daily range): BP systolic 0–161; BP diastolic 0–102; PULSE 0–81; RESP 0–18; TEMP -17.7–36.3; O2SAT 0–100; BMI 24.3
--- NOTE | 2023-08-04 19:15 | ECG_ITS ---
APPROVED REPORT Exam: Resting ECG HR:74 bpm ECG Measurements Heart Rate 74 AXES TX 154 P 67 QRSd 96 QRS 39 QT 373 T 24 QTc 400 Conclusion SINUS RHYTHM NORMAL ECG Electronically signed by : CHRISTINE LY, 08/04/2023 21:41:44
--- NOTE | 2023-08-04 19:45 | ED_ITS ---
Discharge Plan Disposition Patient Disposition: Home, Self-Care Prescriptions Prescriptions: New ondansetron HCl 4 mg tablet 4 mg PO Q8H PRN (Reason: nausea and vomiting) 5 Days Qty: 30 0RF oxycodone 5 mg tablet 5 mg PO Q8H PRN (Reason: pain) Qty: 12 0RF No Action guaifenesin [Mucinex] 600 mg tablet extended release 12hr 600 mg PO BID PRN (Reason: cough) Qty: 20 0RF azithromycin [Zithromax Z-Patricio] 250 mg tablet See Rx Instructions .ROUTE .COMPLEX 5 Days Qty: 6 0RF Rx Instructions: For 250 mg dose pack: take 500 mg today (day 1), then 250 mg for 4 days (days 2-5) prednisone [prednisone] 20 mg tablet 20 mg PO BID 5 Days Qty: 10 0RF meclizine 25 mg tablet 25 mg PO TID PRN (Reason: dizziness) Qty: 15 0RF Referrals Follow up/Referrals: Ria Jo APRN [Primary Care Provider] - See instructions Activity Restrictions/Add. Instructions Additional Instructions/Restrictions: Your CT scans were all normal. Your labs show mild pancreatitis. Please follow-up with your primary care provider. Please return to the emergency department if you develop any new or worsening symptoms or become concerned for your health. Please follow a bland diet and slowly reintroduce foods as your nausea and vomiting improved. Please take Zofran as needed for nausea and vomiting. Please take Tylenol and oxycodone as needed for pain. Clinical Impressions Clinical Impression: Acute pancreatitis, Headache, Cough Instructions Patient Instructions: Acute Pancreatitis Discharge ED Provider: Joe Costa General Adult HPI <Stormy Jones DO - Last Filed: 08/05/23 00:23> General Chief complaint: Chest Pain Stated complaint: chest tightness Time Seen by Provider: 08/04/23 19:45 History of Present Illness HPI narrative: This patient is a 57-year-old male with a prior history of migraines presenting to the emergency department for evaluation with concern for chest pain. According to the patient and his , who helps provide history given that the patient is uncomfortable, he has had lower chest/upper abdominal pain since around 8:00 this morning. It is in the center. He has also had nausea and vomiting. The pain is severe and constant, and nothing seems to make it better or worse. He is never experienced anything like this in the past. No prior history of abdominal surgeries. No history of alcohol abuse or other concerns. Of note, he states that he had a cough for about a month now. He does also complain of a headache at this time but denies any other concerns or complaints. Related Data Previous Rx's Medication Instructions Recorded azithromycin 250 mg tablet See Rx Instructions PO .COMPLEX 5 01/07/22 (Zithromax Z-Patricio) days #6 tabs guaifenesin 600 mg tablet, 600 mg PO BID PRN cough #20 tabs 01/07/22 extended release 12 hr (Mucinex) meclizine 25 mg tablet 25 mg PO TID PRN dizziness #15 tabs 01/07/22 prednisone 20 mg tablet 20 mg PO BID 5 days #10 tabs 01/07/22 ondansetron HCl 4 mg tablet 4 mg PO Q8H PRN nausea and 08/05/23 vomiting 5 days #30 tabs oxycodone 5 mg tablet 5 mg PO Q8H PRN pain #12 tabs 08/05/23 Allergies Allergy/AdvReac Type Severity Reaction Status Date / Time Penicillins Allergy Unknown Verified 06/20/23 10:19 morphine [MORPHINE] AdvReac Unknown NA-NAUSEA Verified 06/20/23 10:19 PFSH <Stormy Jones DO - Last Filed: 08/05/23 00:23> [facility] Disclaimer: The information contained in this section may have been updated after the patient was seen, as this information can be updated by other users. Medical History Finger fracture Migraine Surgical History History of repair of rotator cuff Social History Smoking Status: Former smoker alcohol intake: never current occupational status: retired and other Travel in the last 8 weeks: None household members: spouse housing: house <Stormy Jones DO - Last Filed: 08/05/23 00:23> ROS Obtained: Yes All systems reviewed & no additional complaints except as documented Physical Exam <Stormy Jones DO - Last Filed: 08/05/23 00:23> General General appearance: alert and in no apparent distress Head Head exam: atraumatic and normocephalic Eye Eye exam: Present normal appearance, PERRL and EOMI ENT ENT exam: Present normal exam, normal oropharynx, mucous membranes moist and normal external ear exam Neck Neck exam: Present normal inspection, full ROM and trachea midline; Absent tenderness Chest Chest inspection: Present normal inspection and symmetric chest wall rise; Absent tenderness Respiratory Respiratory exam: Present normal lung sounds bilaterally; Absent respiratory distress, wheezes, stridor or accessory muscle use Cardiovascular Cardiovascular exam: Present regular rate and normal rhythm Abdominal Exam Abdominal exam: Present soft, tenderness (Epigastric) and guarding (Epigastric); Absent distention Extremities Exam Extremities exam: Present normal inspection, full ROM and normal capillary refill; Absent tenderness or edema Back Exam Back exam: Present normal inspection and full ROM; Absent tenderness Neurological Exam Neurological exam: Present alert, oriented X3, CN II-XII intact and normal gait; Absent motor sensory deficit Psychiatric Psychiatric exam: Present normal affect and normal mood Skin Skin exam: Present warm and dry Medical Decision Making <Stormy Jones, DO - Last Filed: 08/05/23 00:23> Medical Records Medical records reviewed: Yes I reviewed the patient's medical records. Rafiq Inquiry Pt receiving controlled substance: No Vital Signs: 08/04/23 19:36 08/04/23 20:30 08/04/23 21:00 Temperature 97.4 F L Temperature Source Oral Pulse Rate 71 81 Pulse Rate [Right Brachial] 79 Respiratory Rate 18 Blood Pressure 153/98 H 142/93 H Blood Pressure [Right Arm] 161/102 H Blood Pressure Mean 116 108 Blood Pressure Mean [Right Arm] 121 02 Sat by Pulse Oximetry 100 97 94 L Oxygen Delivery Method Room Air 08/04/23 22:00 08/04/23 22:30 Temperature Temperature Source Pulse Rate 79 76 Pulse Rate [Right Brachial] Respiratory Rate Blood Pressure 138/90 138/92 H Blood Pressure [Right Arm] Blood Pressure Mean 106 109 Blood Pressure Mean [Right Arm] 02 Sat by Pulse Oximetry 97 98 Oxygen Delivery Method Lab Data Lab results reviewed: Yes I reviewed the patient's lab results. Lab Results 08/04/23 19:40: WBC 7.4, RBC 4.75, Hgb 14.6, Hct 44.6, MCV 94.0, MCH 30.7, MCHC 32.7, RDW 13.1, Plt Count 259, MPV 7.4, Neut % (Auto) 42.0, Lymph % (Auto) 46.3, [place] % (Auto) 5.8, Eos % (Auto) 4.7, Baso % (Auto) 1.2, Neut # (Auto) 3.1, Lymph # (Auto) 3.4, [place] # (Auto) 0.4, Eos # (Auto) 0.4, Baso # (Auto) 0.1, Sodium 139, Potassium 3.6, Chloride 106, Carbon Dioxide 24, Anion Gap 12.6, BUN 20, Creatinine 0.90, Estimated Creat Clear 92, Estimated GFR 87, Est GFR ( Amer) 105, Glucose 107 H, Calcium 9.5, Total Bilirubin 0.4, AST 35, ALT 26, Alkaline Phosphatase 73, Troponin I < 0.01, Total Protein 7.2, Albumin 4.2, Globulin 3.0, Albumin/Globulin Ratio 1.4, Triglycerides 88, Cholesterol 224 H, LDL Cholesterol Direct 108.26, HDL Cholesterol 65 H, Lipase 885 H 08/04/23 19:40 08/04/23 19:40 Orders (Tests/Meds): ED MEDICATIONS Discontinued Medications Generic Name Dose Route Start Last Admin Trade Name Ignacioq PRN Reason Stop Dose Admin Acetaminophen 1,000 mg 08/04/23 23:25 08/04/23 23:29 Acetaminophen 500mg Tab PO 08/04/23 23:26 1,000 mg ONCE ONE Administration Diphenhydramine HCl 50 mg 08/05/23 01:15 Diphenhydramine 25mg Capsule PO 08/05/23 01:16 ONCE ONE Droperidol 2.5 mg 08/05/23 00:19 08/05/23 00:43 Droperidol 5mg/2ml Vial IV 08/05/23 00:20 Not Given ONCE ONE Hydromorphone HCl 0.5 mg 08/04/23 20:16 08/04/23 20:30 Hydromorphone 2mg/Ml Syringe IV 08/04/23 20:17 0.5 mg ONCE ONE Administration Lactated Ringer's 1,000 mls @ 999 mls/hr 08/04/23 20:16 08/04/23 20:30 Lactated Ringer's 1000 Ml Bag IV 08/04/23 21:16 999 mls/hr .Q1H1M ONE Administration Lactated Ringer's 1,000 mls @ 999 mls/hr 08/04/23 23:32 08/04/23 23:36 Lactated Ringer's 1000 Ml Bag IV 08/05/23 00:32 999 mls/hr .Q1H1M ONE Administration Iopamidol 70 ml 08/04/23 21:34 08/04/23 21:41 Iopamidol-370 (76%);100ml Bottle IV 08/04/23 21:35 70 ml ONCE ONE Administration Iopamidol 100 ml 08/05/23 00:39 08/05/23 00:41 Iopamidol-370 (76%);100ml Bottle IV 08/05/23 00:40 100 ml ONCE ONE Administration Ketorolac Tromethamine 15 mg 08/04/23 20:16 08/04/23 20:29 Ketorolac 30mg/Ml Vial IV 08/04/23 20:17 15 mg ONCE ONE Administration Metoclopramide HCl 5 mg 08/04/23 23:43 08/05/23 00:45 Metoclopramide Hcl 10mg/2ml Vial IVP 08/04/23 23:44 5 mg ONCE ONE Administration Ondansetron HCl 4 mg 08/04/23 20:16 08/04/23 20:29 Ondansetron 4mg/2ml Vial IV 08/04/23 20:17 4 mg ONCE ONE Administration Oxycodone HCl 10 mg 08/04/23 23:26 08/04/23 23:29 Oxycodone 5mg Immediate Release Tablet PO 08/04/23 23:27 10 mg ONCE ONE Administration Sodium Chloride 40 ml 08/04/23 21:34 08/04/23 21:40 0.9 % Sodium Chloride 50 Ml Vial IV 08/04/23 21:35 40 ml ONCE ONE Administration Sodium Chloride 10 ml 08/04/23 21:34 08/04/23 21:40 Sodium Chloride 0.9% 10ml Syr (Rad Only) IV 08/04/23 21:35 10 ml ONCE ONE Administration Sodium Chloride 40 ml 08/05/23 00:39 08/05/23 00:41 0.9 % Sodium Chloride 50 Ml Vial IV 08/05/23 00:40 40 ml ONCE ONE Administration Sodium Chloride 10 ml 08/05/23 00:39 08/05/23 00:41 Sodium Chloride 0.9% 10ml Syr (Rad Only) IV 08/05/23 00:40 10 ml ONCE ONE Administration ORDERS Category Date Time Status CT abdomen pelvis w con Stat Cat Scan 08/04/23 20:[address] angio head Stat Cat Scan 08/05/23 00:[address] angio neck Stat Cat Scan 08/05/23 00:[address] head/brain wo con Stat Cat Scan 08/05/23 00:18 Completed CTA Chest [CT angio chest PE protocol] Stat Cat Scan 08/04/23 20:15 Completed Cholesterol Stat Lab 08/04/23 19:40 Completed Complete Blood Count Auto Diff Stat Lab 08/04/23 19:40 Completed Comprehensive Metabolic Panel Stat Lab 08/04/23 19:40 Completed Direct LDL Cholesterol Stat Lab 08/04/23 19:40 Completed HDL Cholesterol Stat Lab 08/04/23 19:40 Completed Lipase Stat Lab 08/04/23 19:40 Completed Triglycerides Stat Lab 08/04/23 19:40 Completed Trop I [Troponin I] Stat Lab 08/04/23 19:40 Completed ECG Data Tracing #1: I reviewed this ECG and interpreted as documented below: Normal sinus rhythm with a ventricular rate of [address] changes concerning for ischemia. Normal axis and intervals. ECG initial impression date: 08/04/23 ECG initial impression time: 15:38 Medical Decision Narrative: In summary, this patient is a 57-year-old male presenting to the Emergency Department for evaluation of lower chest/epigastric pain. Differential diagnoses considered include but are not limited to ACS, dysrhythmia, pancreatitis, GERD, peptic ulcer disease. Ruling out the most morbid conditions drove assessment. On exam, the patient is uncomfortable appearing with epigastric tenderness with guarding. Workup included CBC, CMP, lipase, troponin, EKG as well as CT PE and CT abdomen pelvis with IV contrast. He is given a bolus of IV fluids as well as IV Toradol, Dilaudid, and Zofran for symptomatic improvement. EKG obtained is reassuring with no evidence of ischemia. Labs were obtained that demonstrated significantly elevated lipase greater than 800. Liver enzymes and bilirubin within normal limits. No significant leukocytosis. Troponin negative. Given his cough as well as his abdominal pain and elevated lipase, CT chest, abdomen, and pelvis were ordered. I independently interpreted CT scans prior to the radiologist read and noted no obvious pancreatic abscess or gallstones. Please see their read for final interpretation. On reassessment, patient had some improvement after administration of interventions above, and his abdominal/chest pain is feeling better. He does complain of significant headache at this time. He states that it severe and he has photophobia as well as sensation of tingling in his right hand. He thinks maybe he was lying on his hand in a weird way. He is neurologically intact on exam. Given his symptoms of headache, he was given IV Reglan in addition to the medications received earlier. He did start to complain of abdominal pain again, so he was given another dose of IV Dilaudid. Patient's symptoms did initially improve after these interventions, she was given oral oxycodone to try and transition to oral medications to see if he could potentially go home with symptomatic management of acute pancreatitis. On reassessment again, patient complains that his headache is worse and is still persistent. This is despite receiving IV fluids as well as medications above. He received total of 2 L of fluids. Given this, he was given IV droperidol and decision was made to order CT scan of the head as well as angiograms of the head and neck. Patient care signed out to the oncoming provider, Dr. Costa, pending results and disposition. <Joe Costa MD - Last Filed: 08/05/23 01:23> Vital Signs: 08/04/23 19:36 08/04/23 20:30 08/04/23 21:00 Temperature 97.4 F L Temperature Source Oral Pulse Rate 71 81 Pulse Rate [Right Brachial] 79 Respiratory Rate 18 Blood Pressure 153/98 H 142/93 H Blood Pressure [Right Arm] 161/102 H Blood Pressure Mean 116 108 Blood Pressure Mean [Right Arm] 121 02 Sat by Pulse Oximetry 100 97 94 L Oxygen Delivery Method Room Air 08/04/23 22:00 08/04/23 22:30 Temperature Temperature Source Pulse Rate 79 76 Pulse Rate [Right Brachial] Respiratory Rate Blood Pressure 138/90 138/92 H Blood Pressure [Right Arm] Blood Pressure Mean 106 109 Blood Pressure Mean [Right Arm] 02 Sat by Pulse Oximetry 97 98 Oxygen Delivery Method Lab Data Lab Results 08/04/23 19:40: WBC 7.4, RBC 4.75, Hgb 14.6, Hct 44.6, MCV 94.0, MCH 30.7, MCHC 32.7, RDW 13.1, Plt Count 259, MPV 7.4, Neut % (Auto) 42.0, Lymph % (Auto) 46.3, [place] % (Auto) 5.8, Eos % (Auto) 4.7, Baso % (Auto) 1.2, Neut # (Auto) 3.1, Lymph # (Auto) 3.4, [place] # (Auto) 0.4, Eos # (Auto) 0.4, Baso # (Auto) 0.1, Sodium 139, Potassium 3.6, Chloride 106, Carbon Dioxide 24, Anion Gap 12.6, BUN 20, Creatinine 0.90, Estimated Creat Clear 92, Estimated GFR 87, Est GFR ( Amer) 105, Glucose 107 H, Calcium 9.5, Total Bilirubin 0.4, AST 35, ALT 26, Alkaline Phosphatase 73, Troponin I < 0.01, Total Protein 7.2, Albumin 4.2, Globulin 3.0, Albumin/Globulin Ratio 1.4, Triglycerides 88, Cholesterol 224 H, LDL Cholesterol Direct 108.26, HDL Cholesterol 65 H, Lipase 885 H Orders (Tests/Meds): ED MEDICATIONS Discontinued Medications Generic Name Dose Route Start Last Admin Trade Name Shanae PRN Reason Stop Dose Admin Acetaminophen 1,000 mg 08/04/23 23:25 08/04/23 23:29 Acetaminophen 500mg Tab PO 08/04/23 23:26 1,000 mg ONCE ONE Administration Diphenhydramine HCl 50 mg 08/05/23 01:15 Diphenhydramine 25mg Capsule PO 08/05/23 01:16 ONCE ONE Droperidol 2.5 mg 08/05/23 00:19 08/05/23 00:43 Droperidol 5mg/2ml Vial IV 08/05/23 00:20 Not Given ONCE ONE Hydromorphone HCl 0.5 mg 08/04/23 20:16 08/04/23 20:30 Hydromorphone 2mg/Ml Syringe IV 08/04/23 20:17 0.5 mg ONCE ONE Administration Lactated Ringer's 1,000 mls @ 999 mls/hr 08/04/23 20:16 08/04/23 20:30 Lactated Ringer's 1000 Ml Bag IV 08/04/23 21:16 999 mls/hr .Q1H1M ONE Administration Lactated Ringer's 1,000 mls @ 999 mls/hr 08/04/23 23:32 08/04/23 23:36 Lactated Ringer's 1000 Ml Bag IV 08/05/23 00:32 999 mls/hr .Q1H1M ONE Administration Iopamidol 70 ml 08/04/23 21:34 08/04/23 21:41 Iopamidol-370 (76%);100ml Bottle IV 08/04/23 21:35 70 ml ONCE ONE Administration Iopamidol 100 ml 08/05/23 00:39 08/05/23 00:41 Iopamidol-370 (76%);100ml Bottle IV 08/05/23 00:40 100 ml ONCE ONE Administration Ketorolac Tromethamine 15 mg 08/04/23 20:16 08/04/23 20:29 Ketorolac 30mg/Ml Vial IV 08/04/23 20:17 15 mg ONCE ONE Administration Metoclopramide HCl 5 mg 08/04/23 23:43 08/05/23 00:45 Metoclopramide Hcl 10mg/2ml Vial IVP 08/04/23 23:44 5 mg ONCE ONE Administration Ondansetron HCl 4 mg 08/04/23 20:16 08/04/23 20:29 Ondansetron 4mg/2ml Vial IV 08/04/23 20:17 4 mg ONCE ONE Administration Oxycodone HCl 10 mg 08/04/23 23:26 08/04/23 23:29 Oxycodone 5mg Immediate Release Tablet PO 08/04/23 23:27 10 mg ONCE ONE Administration Sodium Chloride 40 ml 08/04/23 21:34 08/04/23 21:40 0.9 % Sodium Chloride 50 Ml Vial IV 08/04/23 21:35 40 ml ONCE ONE Administration Sodium Chloride 10 ml 08/04/23 21:34 08/04/23 21:40 Sodium Chloride 0.9% 10ml Syr (Rad Only) IV 08/04/23 21:35 10 ml ONCE ONE Administration Sodium Chloride 40 ml 08/05/23 00:39 08/05/23 00:41 0.9 % Sodium Chloride 50 Ml Vial IV 08/05/23 00:40 40 ml ONCE ONE Administration Sodium Chloride 10 ml 08/05/23 00:39 08/05/23 00:41 Sodium Chloride 0.9% 10ml Syr (Rad Only) IV 08/05/23 00:40 10 ml ONCE ONE Administration ORDERS Category Date Time Status CT abdomen pelvis w con Stat Cat Scan 08/04/23 20:[address] angio head Stat Cat Scan 08/05/23 00:[address] angio neck Stat Cat Scan 08/05/23 00:[address] head/brain wo con Stat Cat Scan 08/05/23 00:18 Completed CTA Chest [CT angio chest PE protocol] Stat Cat Scan 08/04/23 20:15 Completed Cholesterol Stat Lab 08/04/23 19:40 Completed Complete Blood Count Auto Diff Stat Lab 08/04/23 19:40 Completed Comprehensive Metabolic Panel Stat Lab 08/04/23 19:40 Completed Direct LDL Cholesterol Stat Lab 08/04/23 19:40 Completed HDL Cholesterol Stat Lab 08/04/23 19:40 Completed Lipase Stat Lab 08/04/23 19:40 Completed Triglycerides Stat Lab 08/04/23 19:40 Completed Trop I [Troponin I] Stat Lab 08/04/23 19:40 Completed Medical Decision Narrative: In summary, this patient is a 57-year-old male presenting to the Emergency Department for evaluation of lower chest/epigastric pain. Differential diagnoses considered include but are not limited to ACS, dysrhythmia, pancreatitis, GERD, peptic ulcer disease. Ruling out the most morbid conditions drove assessment. On exam, the patient is uncomfortable appearing with epigastric tenderness with guarding. Workup included CBC, CMP, lipase, troponin, EKG as well as CT PE and CT abdomen pelvis with IV contrast. He is given a bolus of IV fluids as well as IV Toradol, Dilaudid, and Zofran for symptomatic improvement. EKG obtained is reassuring with no evidence of ischemia. Labs were obtained that demonstrated significantly elevated lipase greater than 800. Liver enzymes and bilirubin within normal limits. No significant leukocytosis. Troponin negative. Given his cough as well as his abdominal pain and elevated lipase, CT chest, abdomen, and pelvis were ordered. I independently interpreted CT scans prior to the radiologist read and noted no obvious pancreatic abscess or gallstones. Please see their read for final interpretation. On reassessment, patient had some improvement after administration of interventions above, and his abdominal/chest pain is feeling better. He does complain of significant headache at this time. He states that it severe and he has photophobia as well as sensation of tingling in his right hand. He thinks maybe he was lying on his hand in a weird way. He is neurologically intact on exam. Given his symptoms of headache, he was given IV Reglan in addition to the medications received earlier. He did start to complain of abdominal pain again, so he was given another dose of IV Dilaudid. Patient's symptoms did initially improve after these interventions, she was given oral oxycodone to try and transition to oral medications to see if he could potentially go home with symptomatic management of acute pancreatitis. On reassessment again, patient complains that his headache is worse and is still persistent. This is despite receiving IV fluids as well as medications above. He received total of 2 L of fluids. Given this, he was given IV droperidol and decision was made to order CT scan of the head as well as angiograms of the head and neck. Patient care signed out to the oncoming provider, Dr. Costa, pending results and disposition. Julissa RENEE: I assumed care of the patient at the time of handoff from the prior provider. Patient was not given droperidol. CT scans of the head and neck showed no evidence of acute pathology. On reassessment patient reports marked symptomatic improvement. Headache is now better, only slightly present. I had extensive discussion with patient and family regarding the diagnosis of pancreatitis, risk factors etc. he was given a dose of Benadryl and discharged in stable condition prescription for Zofran and oxycodone for pancreatitis as well as instructions regarding diet etc. Directed to follow-up with PCP. Patient discharged in stable condition. Critical Care <Stormy Jones, - Last Filed: 08/05/23 00:23> Critical Care Time Critical Care Time: No
[2023-08-04 19:52] LABS: Basophils # 0.1 K/mm3 (0-0.2); Basophils % 1.2 % (0.1-2.0); Eosinophils # 0.4 K/mm3 (0.0-0.4); Eosinophils % 4.7 % (0.1-12.0); Hematocrit 44.6 % (42.0-52.0); Hemoglobin 14.6 g/dL (14.1-18.0); Lymphocytes # 3.4 K/mm3 (0.7-4.5); Lymphocytes % 46.3 % (10-50); Mean Corpuscular HGB Conc 32.7 g/dL (31.8-35.4); Mean Corpuscular Hemoglobin 30.7 pg (27.0-31.2); Mean Platelet Volume 7.4 fl (7.4-10.4); Monocytes # 0.4 K/mm3 (0.1-1.0); Monocytes % 5.8 % (1.7-9.3); Neutrophils # 3.1 K/mm3 (1.8-7.8); Platelet Count 259 K/mm3 (142-424); Red Blood Count 4.75 M/mm3 (4.60-6.20); Red Cell Distribution Width 13.1 % (11.5-17.5); White Blood Count 7.4 K/mm3 (4.8-10.8)
[2023-08-04 19:53] LABS: Chloride 106 mmol/L (98-107); Potassium 3.6 mmoL/L (3.5-5.1); Sodium 139 mmol/L (136-145)
[2023-08-04 19:55] LABS: Blood Urea Nitrogen 20 mg/dl (9-20); Creatinine Clearance Estimated 92 mL/min (50-200); Estimated Glomerular Filt Rate 87 ml/min (>60); GFR (African American) 105 ML/MIN (>60)
[2023-08-04 19:56] LABS: Alanine Aminotransferase 26 U/L (12-78); Albumin Level 4.2 g/dl (3.5-5.0); Albumin/Globulin Ratio 1.4 (1.1-1.8); Alkaline Phosphatase 73 U/L (38-126); Aspartate Amino Transferase 35 U/L (17-59); Bilirubin,Total 0.4 mg/dl (0.2-1.3); Calcium 9.5 mg/dl (8.4-10.2); Carbon Dioxide 24 mmol/L (22.0-30.0); Glucose 107 mg/dl (74-100); Total Protein,Serum 7.2 g/dl (6.3-8.2)
[2023-08-04 20:01] LABS: Lipase 885 U/L (23-300)
--- NOTE | 2023-08-04 20:02 | PC.NURSE ---
Ilsa from the lab called and advised that the pts Lipase is Critical at 885. and RN made aware. CR
[2023-08-04 20:08] LABS: Troponin I < 0.01 ng/ml (0.00-0.034)
[2023-08-04 20:10] LABS: Anion Gap 12.6 mEq/L (5-15)
--- NOTE | 2023-08-04 20:15 | CT_ITS ---
PROCEDURE INFORMATION: Exam: CT Abdomen And Pelvis With Contrast Exam date and time: 08/04/2023 9:32 PM Age: 57 years old Clinical indication: Other: Pancreatitis; Abdominal pain; Epigastric; Additional info: Pancreatitis, unknown etiology, epigastric pain TECHNIQUE: Imaging protocol: Computed tomography of the abdomen and pelvis with contrast. Radiation optimization: All CT scans at this facility use at least one of these dose optimization techniques: automated exposure control; mA and/or kV adjustment per patient size (includes targeted exams where dose is matched to clinical indication); or iterative reconstruction. Contrast material: ISOVUE; Contrast volume: 70 ml; Contrast route: IV; COMPARISON: CT ANGIO CHEST PE PROTOCOL 08/04/2023 9:32 PM FINDINGS: Liver: Tiny cyst in the right lobe of the liver 1 cm. Gallbladder and biliary ducts: Normal. No calcified stones. No ductal dilation. Pancreas: Normal. No ductal dilation. Spleen: Normal. No splenomegaly. Adrenal glands: Normal. No mass. Kidneys and ureters: Normal. No hydronephrosis. Stomach and bowel: Unremarkable. No obstruction. No mucosal thickening. Appendix: No evidence of appendicitis. Intraperitoneal space: Unremarkable. No free air. No significant fluid collection. Vasculature: Unremarkable. No abdominal aortic aneurysm. Lymph nodes: Unremarkable. No enlarged lymph nodes. Urinary bladder: Distended urinary bladder. Reproductive: Unremarkable as visualized. Bones/joints: Unremarkable. No acute fracture. Soft tissues: Small left inguinal hernia containing non inflamed non incarcerated portion of sigmoid colon. IMPRESSION: No acute findings.
--- NOTE | 2023-08-04 20:15 | CT_ITS ---
PROCEDURE INFORMATION: Exam: CTA Chest With Contrast Exam date and time: 08/04/2023 9:32 PM Age: 57 years old Clinical indication: Chest wall pain; Additional info: Cough, chest pain TECHNIQUE: Imaging protocol: Computed tomographic angiography of the chest with contrast. Exam focused on the arteries. 3D rendering (Not supervised by radiologist): MIP and/or 3D reconstructed images were created by the technologist. Radiation optimization: All CT scans at this facility use at least one of these dose optimization techniques: automated exposure control; mA and/or kV adjustment per patient size (includes targeted exams where dose is matched to clinical indication); or iterative reconstruction. Contrast material: [place]OVUE; Contrast volume: 75 ml; Contrast route: INTRAVENOUS (IV); COMPARISON: CR XR CHEST PORTABLE 10/29/2020 5:50 PM FINDINGS: Pulmonary arteries: Normal. No pulmonary emboli. Aorta: Unremarkable. No aortic aneurysm. No aortic dissection. Lungs: Mild atelectasis in the lung bases. No consolidation. No masses. Pleural spaces: Unremarkable. No pneumothorax. No pleural effusion. Heart: Unremarkable. No cardiomegaly. No pericardial effusion. Lymph nodes: Unremarkable. No enlarged lymph nodes. Bones/joints: Unremarkable. No acute fracture. Soft tissues: Unremarkable. IMPRESSION: No acute findings.
[2023-08-04] MEDS: ONDANSETRON 4MG/2ML VIAL 4 MG IV (20:29)
[2023-08-04] MEDS: KETOROLAC 30MG/ML VIAL 15 MG IV (20:29)
[2023-08-04] MEDS: HYDROMORPHONE 2MG/ML SYRINGE 0.5 MG IV (20:30)
[2023-08-04] MEDS: LACTATED RINGERS 1000ML 1,000 ML 999 ML IV ×2 (20:30→23:36)
[2023-08-04] MEDS: 0.9 % SODIUM CHLORIDE 50 ML VIAL 40 ML IV (21:40)
[2023-08-04] MEDS: SODIUM CHLORIDE 0.9% 10ML SYR (RAD ONLY) 10 ML IV (21:40)
[2023-08-04] MEDS: IOPAMIDOL-370 (76%);100ML BOTTLE 70 ML IV (21:41)
[2023-08-04] MEDS: OXYCODONE 5MG IMMEDIATE RELEASE TABLET 10 MG PO (23:29)
[2023-08-04] MEDS: ACETAMINOPHEN 500MG TAB 1000 MG PO (23:29)
[2023-08-04 23:50] LABS: Cholesterol 224 mg/dl (140-200); HDL Cholesterol 65 mg/dl (40-60); Triglycerides 88 mg/dl (30-150)
[2023-08-05] VITALS: BP 136/91; PULSE 83; O2SAT 97
[2023-08-05 00:01] LABS: Direct LDL Cholesterol 108.26 mg/dL (100-129)
--- NOTE | 2023-08-05 00:18 | CT_ITS ---
PROCEDURE INFORMATION: Exam: CT Head Without Contrast Exam date and time: 08/05/2023 12:28 AM Age: 57 years old Clinical indication: Pain; Headache not specified; Additional info: Headache, severe, persistent TECHNIQUE: Imaging protocol: Computed tomography of the head without contrast. Radiation optimization: All CT scans at this facility use at least one of these dose optimization techniques: automated exposure control; mA and/or kV adjustment per patient size (includes targeted exams where dose is matched to clinical indication); or iterative reconstruction. COMPARISON: CT HEAD/BRAIN WO CON 10/29/2020 6:01 PM FINDINGS: Brain: Normal. No hemorrhage. Unremarkable white matter. No mass effect. Cerebral ventricles: No ventriculomegaly. Paranasal sinuses: Mucosal thickening in the left maxillary sinus and ethmoid air cells, sphenoid sinus and right maxillary sinus. Mastoid air cells: Visualized mastoid air cells are well aerated. Bones: Unremarkable. No acute fracture. Soft tissues: Unremarkable. IMPRESSION: No acute intracranial abnormality.
--- NOTE | 2023-08-05 00:18 | CT_ITS ---
PROCEDURE INFORMATION: Exam: CTA Head With Contrast, Arteriography Exam date and time: 08/05/2023 12:31 AM Age: 57 years old Clinical indication: Headache; Additional info: Headache, severe, persistent TECHNIQUE: Imaging protocol: Computed tomographic angiography of the head with contrast. Exam focused on the arteries. 3D rendering (Not supervised by radiologist): MIP and/or 3D reconstructed images were created by the technologist. Radiation optimization: All CT scans at this facility use at least one of these dose optimization techniques: automated exposure control; mA and/or kV adjustment per patient size (includes targeted exams where dose is matched to clinical indication); or iterative reconstruction. Contrast material: ISOVUE 370; Contrast volume: 100 ml; Contrast route: INTRAVENOUS (IV); COMPARISON: CT HEAD/BRAIN WO CON 08/05/2023 12:28 AM FINDINGS: ANTERIOR CIRCULATION: Right internal carotid artery: Intracranial segment is patent with no significant stenosis. No aneurysm. Right middle cerebral artery: No occlusion or significant stenosis. No aneurysm. Right anterior cerebral artery: No occlusion or significant stenosis. No aneurysm. Left internal carotid artery: Intracranial segment is patent with no significant stenosis. No aneurysm. Left middle cerebral artery: No occlusion or significant stenosis. No aneurysm. Left anterior cerebral artery: No occlusion or significant stenosis. No aneurysm. POSTERIOR CIRCULATION: Right vertebral artery: No occlusion or significant stenosis. No aneurysm. Left vertebral artery: No occlusion or significant stenosis. No aneurysm. Basilar artery: No occlusion or significant stenosis. No aneurysm. Right posterior cerebral artery: No occlusion or significant stenosis. No aneurysm. Left posterior cerebral artery: No occlusion or significant stenosis. No aneurysm. Brain: No definite mass, mass effect, or midline shift. Cerebral ventricles: No ventriculomegaly. Bones/joints: Unremarkable. No acute fracture. Soft tissues: Unremarkable. IMPRESSION: No large vessel stenosis or occlusion.
--- NOTE | 2023-08-05 00:18 | CT_ITS ---
PROCEDURE INFORMATION: Exam: CTA Neck With Contrast Exam date and time: 08/05/2023 12:31 AM Age: 57 years old Clinical indication: Headache; Additional info: Headache, severe, persistent TECHNIQUE: Imaging protocol: Computed tomographic angiography of the neck with contrast. Exam focused on the cervical segments of the vasculature. 3D rendering (Not supervised by radiologist): MIP and/or 3D reconstructed images were created by the technologist. Radiation optimization: All CT scans at this facility use at least one of these dose optimization techniques: automated exposure control; mA and/or kV adjustment per patient size (includes targeted exams where dose is matched to clinical indication); or iterative reconstruction. Contrast material: ISOVUE 370; Contrast volume: 100 ml; Contrast route: INTRAVENOUS (IV); COMPARISON: CT ANGIO HEAD 08/05/2023 12:31 AM FINDINGS: Right common carotid artery: No stenosis. No dissection or occlusion. Right internal carotid artery: No stenosis of the extracranial segment. No dissection or occlusion. Right external carotid artery: No occlusion or stenosis of the origin. Left common carotid artery: No stenosis. No dissection or occlusion. Left internal carotid artery: No stenosis of the extracranial segment. No dissection or occlusion. Left external carotid artery: No occlusion or stenosis of the origin. Right vertebral artery: No stenosis. No dissection or occlusion. Left vertebral artery: No stenosis. No dissection or occlusion. Soft tissues: Normal. No significant soft tissue swelling. Bones/joints: No acute fracture. IMPRESSION: No stenosis or occlusion. REFERENCES: NASCET CRITERIA. The degree of stenosis in the cervical segment of the internal carotid artery is based on NASCET criteria. Normal is no stenosis. Mild is less than 50% stenosis. Moderate is 50-69% stenosis. Severe is 70% to 99% stenosis. Total occlusion is no detectable patent lumen.
[2023-08-05] MEDS: SODIUM CHLORIDE 0.9% 10ML SYR (RAD ONLY) 10 ML IV (00:41)
[2023-08-05] MEDS: 0.9 % SODIUM CHLORIDE 50 ML VIAL 40 ML IV (00:41)
[2023-08-05] MEDS: IOPAMIDOL-370 (76%);100ML BOTTLE 100 ML IV (00:41)
[2023-08-05] MEDS: METOCLOPRAMIDE HCL 10MG/2ML VIAL 5 MG IVP (00:45)
[2023-08-05] MEDS: diphenhydrAMINE 25MG CAPSULE 50 MG PO (01:34)
[2023-08-05 01:39] VITALS: BP 134/82; PULSE 71; PULSE 79; RESP 16; TEMP 36.3; O2SAT 98
== END 2023-08-05 01:41 | disposition home or self-care (01) ==
PROVIDERS: Emergency Medicine; Emergency Provider Emergency Medicine; PCP Nurse Practitioner
DX: K85.90 Acute pancreatitis without necrosis or infection, unspecified (principal); R07.89 Other chest pain; R51.9 Headache, unspecified; R11.2 Nausea with vomiting, unspecified; R05.9 Cough, unspecified; R10.13 Epigastric pain
CPT/HCPCS: 70450; 70496; 70498; 71275; 74177; 80053; 82465; 83690; 83718; 83722; 84478; 84484; 85025; 93005; 96361; 96374; 96375; 99285; J1170; J1885; J2405; J2765; J7120; Q9967

== ENCOUNTER 2023-08-19 11:31 | Outpatient (CLI) | payer BC, SELFPAY ==
--- NOTE | 2023-08-19 11:35 | XR_ITS ---
FINAL REPORT CLINICAL HISTORY: COUGH,FATIGUE. HEADACHES COMPARISON: None FINDINGS: Two views of the chest were obtained. The heart size and pulmonary vascularity are within normal limits. The mediastinum is normal. No acute pulmonary abnormality is identified. There is no pneumothorax. The bony thorax is intact. Postoperative changes noted in the right shoulder. IMPRESSION: No active cardiopulmonary disease. Reviewed, Interpreted and Dictated by Oziel Enriquez III, MD Transcribed by Ayleen Brink Authenticated and [facility]
== END 2023-08-19 23:59 | disposition home or self-care (01) ==
LOC: RAD 11:31
PROVIDERS: PCP Nurse Practitioner; Visit Provider Nurse Practitioner
DX: R05.9 Cough, unspecified (principal); R53.83 Other fatigue
CPT/HCPCS: 71046

== ENCOUNTER 2023-11-29 12:11 | Outpatient (CLI) | payer BC, SELFPAY ==
[2023-11-29 12:49] VITALS: BMI 23.6
[2023-11-29 13:17] LABS: Basophils % 0.3 % (0.1-2.0); Chloride 109 mmol/L (98-107); Eosinophils # 0.3 K/mm3 (0.0-0.4); Eosinophils % 4.6 % (0.1-12.0); Hematocrit 41.7 % (42.0-52.0); Hemoglobin 13.9 g/dL (14.1-18.0); Lymphocytes # 1.9 K/mm3 (0.7-4.5); Mean Corpuscular HGB Conc 33.4 g/dL (31.8-35.4); Mean Corpuscular Hemoglobin 30.4 pg (27.0-31.2); Mean Corpuscular Volume 91.2 fl (80-94); Mean Platelet Volume 7.7 fl (7.4-10.4); Monocytes # 0.3 K/mm3 (0.1-1.0); Monocytes % 5.3 % (1.7-9.3); Neutrophils # 3.3 K/mm3 (1.8-7.8); Neutrophils % 56.8 % (37.0-80.0); Platelet Count 295 K/mm3 (142-424); Potassium 3.7 mmoL/L (3.5-5.1); Red Blood Count 4.57 M/mm3 (4.60-6.20); Red Cell Distribution Width 12.7 % (11.5-17.5); Sodium 138 mmol/L (136-145); White Blood Count 5.8 K/mm3 (4.8-10.8)
[2023-11-29 13:20] LABS: Anion Gap 8.7 mEq/L (5-15); Blood Urea Nitrogen 15 mg/dl (9-20); Carbon Dioxide 24 mmol/L (22.0-30.0); Creatinine Clearance Estimated 117 mL/min (50-200); Estimated Glomerular Filt Rate 115 ml/min (>60); GFR (African American) 140 ML/MIN (>60)
[2023-11-29 13:21] LABS: Calcium 9.2 mg/dl (8.4-10.2); Glucose 100 mg/dl (74-100)
== END 2023-11-29 23:59 | disposition home or self-care (01) ==
LOC: PREOP 12:11
PROVIDERS: Nurse Anesthetist, Certified Registered; PCP Family Medicine; Visit Provider Orthopaedic Surgery
DX: Z01.812 Encounter for preprocedural laboratory examination (principal)
CPT/HCPCS: 80048; 85025

== ENCOUNTER 2023-12-04 08:30 | Day surgery (SDC) | payer BC, SELFPAY ==
[2023-11-29 11:11] VITALS: BMI 23.6
[2023-12-04] VITALS (9 sets, daily range): BP systolic 108–155; BP diastolic 71–94; PULSE 62–79; RESP 16–18; TEMP 36.2–36.6; O2SAT 93–100
[2023-12-04] MEDS: LACTATED RINGERS 1000ML 1,000 ML 100 ML IV (08:57)
--- NOTE | 2023-12-04 09:42 | P.PNANES_ITS ---
[facility] Disclaimer: The information contained in this section may have been updated after the patient was seen, as this information can be updated by other users. Medical History (Updated 11/29/23 @ 11:06 by Satya Esparza RN) History of lipoma Asthma Left knee pain Finger fracture Migraine Surgical History History of repair of rotator cuff Family History (Updated 11/29/23 @ 11:06 by Sayta Esparza RN) Other Family history of renal failure Social History (Updated 11/29/23 @ 11:07 by Satya Esparza RN) Smoking Status: Former smoker alcohol intake: never substance use type: denies use current occupational status: retired Travel in the last 8 weeks: None household members: spouse housing: house [facility] Anesthesia Checklist Patient Identification Patient Identification: Arm Band, Family and Verbal (Name & ) Structural Data Admitted From: Home Planned Operative Procedure/s: Left Knee scope w/PMM vs. meniscal root repair Consent for Planned Operative Procedure(s) Verified: Yes Verified Documents: Surgical Consent and History and Physical NPO Status Verified Time NPO: 21:00 Chart Verification Results Verified: CBC, BMP, ECG and Chest Xray Additional verifications Patient : No Anesthesia Reactions: No Hx Blood Transfusions: No Blood Transfusion Reaction: No Cardiovascular Assessment Heart Sounds: S1 & S2 Pulse Rhythm: Irregular Peripheral Edema: No Airway Assessment Mallampati Score:: Class II C-Spine Mobility Assessed: Yes (demonstrated) Dentition: Good Dentition (Nothing loose per pt.) Neurological Assessment Level of Consciousness: Awake, Alert, Appropriate and Follows Commands Hx Seizures: No Numbness or tingling in extremities: No Anesthesia Plan Anesthesia Risk discussed: Yes Anesthesia Plan: Verified Anesthesia Type: General
[2023-12-04] MEDS: CLINDAMYCIN PHOSPHATE/D5W 900 MG/50 ML PIGGYBACK 100 MG IV (10:40)
[2023-12-04] MEDS: BUPIVACAINE 0.25% 30ML VIAL 75 MG (11:06)
[2023-12-04] MEDS: RINGERS SOLUTION,LACTATED 6,000 ML 6000 ML IR (11:10)
--- NOTE | 2023-12-04 11:37 | P.PNANES_ITS ---
[facility] Anesthesia Record Part I Anesthesia Record I Intake, IV Amount: 1,000 Hydration: Adequate Estimated blood loss (mL): 5 Urine output (mL): 0 Blood Products used (#): none Blood Pressure: 110/72 SaO2: 95 Pulse Rate: 74 Airway Patency: Patent Respiratory Rate: 16 Temperature: 97.3 F Patient is:: Drowsy and Stable Stable to PACU at:: 11:35
--- NOTE | 2023-12-04 11:43 | P.OP_ITS ---
Date of procedure: 12/04/23 Pre-op Diagnosis:: Left knee medial meniscus tear Post-op Diagnosis:: Left knee complex tear posterior horn medial meniscus Large medial engaging plica Procedure performed:: 1. Left knee arthroscopy partial medial meniscectomy 2. Left knee arthroscopy with excision debridement of medial engaging plica Surgeon:: Shan Scott DO SEWING MACHINE TESTER:: Morris Michaels Anesthesia: GETA Estimated blood loss (mL): 0 Operative findings:: Large posterior horn medial meniscus tear, macerated white zone nonrepairable Operative note:: Patient identified preoperatively. Left knee marked with yes my initials. Then taken the operating room placed upon operating bed. General anesthesia administered and airway secured. Left lower extremity was then prepped and draped within the knee osorio. Once prepped and draped final operative timeout performed to identify proper patient procedure and extremity. Everyone involved the case agreed. There is no counter indications to beginning. He did receive preoperative antibiotics. Marking pen was used to tom the bony landmarks of the knee and standard portal sites. Esmarch was used to exsanguinate the extremity and pneumatic tourniquet inflated to 300 mmHg. Skin knife is used to incise standard anterior lateral portal and blunt with trocar was placed in the patellofemoral joint this is exchanged with a camera. Swept directly into the medial joint line. Within the medial gutter there was a large medial engaging plica present. Also into the medial joint line and under direct visualization and help with the spinal needle standard anterior medial portal was made. This was exchanged with a probe. Probing the posterior horn the medial meniscus showed a left very large macerated tear of the posterior horn of the medial meniscus extending up to the root but no willie root displacement. This tear was complex macerated and in the white zone and not amendable to repair Using a combination of straight biter and sucker shaver partial medial me niscectomy was performed back to stable rim. This was probed and confirmed to be stable. There was a small area of the kissing lesion along the rim of the medial femoral condyle but no full-thickness cartilage loss. Scope into the intercondylar notch the ACL was seen and intact. The scope into the lateral joint line lateral cartilage was preserved lateral meniscus was preserved. The scope into the medial and lateral gutters and back into the medial gutter with a large engaging plica was present Using a sucker shaver excision and debridement of the medial engaging plica was performed. The knee was flexed and extended there was no more further rubbing of the plaque on the medial femoral condyle. No further pathology was seen the camera was removed. The joint was drained. Local anesthesia infiltrated the portal sites. Skin closed with nylon stitch. Sterile dressing placed from toe to thigh patient waken anesthesia taken recovery in stable condition.. Condition: stable Disposition: PACU Complications:: None apparent
--- NOTE | 2023-12-05 07:28 | P.PNANES_ITS ---
[facility] Anesthesia Record Part II Anesthesia Record Part II Discharge Time: 12:05 Destination: Surgical Day Care (OP Surgery) PACU nurse assessment reviewed?: Yes Patient Condition:: Good Anesthesia Complications:: None Swallowing reflex intact?: Yes Airway Patency: Patent Cyanosis?: No Blood Pressure: 119/83 SaO2: 97 Respiratory Rate: 18 Pulse Rate: 76 Temperature: 97.2 F Mental Status: Alert & Oriented Pain level:: 0 Nausea and/or vomitting:: None Intake, IV Amount: 0 Hydration: Adequate
[2023-12-05 07:29] VITALS: BP 119/83; PULSE 76; RESP 18; TEMP 36.2; O2SAT 97
== END 2023-12-04 13:12 | disposition home or self-care (01) ==
PROVIDERS: PCP Family Medicine; Visit Provider Orthopaedic Surgery
PROC: (CPT 29870; principal; 2023-12-04 10:00)
DX: S83.232A Complex tear of medial meniscus, current injury, left knee, initial encounter (principal)
CPT/HCPCS: 29881; 96374; J1100; J1885; J2250; J2405; J3010; J7120

== ENCOUNTER 2025-01-19 00:20 | Emergency (ER) | payer BC, SELFPAY ==
[2025-01-19] VITALS (15 sets, daily range): BP systolic 101–111; BP diastolic 69–83; PULSE 71–92; RESP 14–16; TEMP 36.7–37.2; O2SAT 92–97; BMI 23.6
--- NOTE | 2025-01-19 00:19 | ECG_ITS ---
APPROVED REPORT Exam: Resting ECG HR:105 bpm ECG Measurements Heart Rate 105 AXES AL 143 P 66 QRSd 93 QRS 33 QT 336 T 43 QTc 397 Conclusion SINUS TACHYCARDIA WITH OCCASIONAL VENTRICULAR PREMATURE COMPLEXES NONSPECIFIC ST & T-WAVE ABNORMALITY ABNORMAL RHYTHM ECG No STEMI Electronically signed by : UMER MORALES, 01/19/2025 06:00:39
--- OUTSIDE RECORDS SUMMARY | 2025-01-19 00:27 | XMS_ITS ---
Author Organization Unknown ENCOUNTERS Encounter Performer Location Date Diagnosis Diagnosis Status Pre Admit Stormy [place] [address] [place] [address] [id number] Emergency Joe Costa [address] [place] [id number] [facility] [place] [address] [place] [id number] [facility] [place] [address] [place] [address] [id number] [facility] [place] [address] [place] [address] [id number] [facility] Emergency Dwayne Martinez [place] [address] [place] [id number] [facility] *Note: Encounters from your own facility or health system may be excluded. Allergies, Adverse Reactions, Alerts Allergen Type Severity Identification Date morphine drug allergy 0 [id number] Penicillins drug allergy 0 [id number] Medications Name Date Quantity Days Supplied GPI Number
--- NOTE | 2025-01-19 01:18 | XR_ITS ---
PROCEDURE INFORMATION: Exam: XR Chest Exam date and time: 01/19/2025 1:19 AM Age: 59 years old Clinical indication: Pain; Chest pressure; Additional info: Cp TECHNIQUE: Imaging protocol: Radiologic exam of the chest. Views: 2 views. COMPARISON: CR XR CHEST 2V 08/19/2023 11:39 AM FINDINGS: Lungs: Some mild hypoventilatory changes. Retrocardiac opacification/infiltrate. Pleural spaces: Left pleural effusion. Heart/Mediastinum: Unremarkable. No cardiomegaly. Bones/joints: Postoperative change of the right shoulder. IMPRESSION: Findings suggest left lower lobe pneumonia with parapneumonic effusion.
--- NOTE | 2025-01-19 01:27 | ED_ITS ---
Discharge Plan Disposition Patient Disposition: Home, Self-Care Condition: Good Prescriptions Prescriptions: New azithromycin 250 mg tablet 250 mg PO DAILY 4 Days Qty: 4 0RF Rx Instructions: start on day 2 of therapy No Action budesonide-formoterol [Symbicort] 80-4.5 mcg/actuation HFA aerosol inhaler 80 inh INHALATION BID Patient Comments: INHALE TWO PUFFS BY MOUTH TWICE DAILY with spacer hydrocodone-acetaminophen 5-325 mg tablet 1 tab PO Q4H PRN (Reason: Postop pain) Qty: 30 0RF Referrals Follow up/Referrals: Socorro Mast MD [Primary Care Provider, Medical] - See instructions Activity Restrictions/Add. Instructions Additional Instructions/Restrictions: You were evaluated in the ER and are believed to be appropriate for discharge at this time. Continue taking any home medications as previously prescribed. Follow-up for your surgery as scheduled. Take Tylenol or ibuprofen if needed for pain, do not exceed the recommended dose on the bottle. Drink water and eat a small snack each time you take his medications to avoid side effects. Take your antibiotics as prescribed, do not skip doses, do not stop taking them early. You should take your next dose 24 hours from now. Please make an appointment with your primary care doctor for reevaluation in 2 to 3 days. Return to the ER with any new, worsening, or otherwise concerning symptoms. Clinical Impressions Clinical Impression: Atypical pneumonia, Chest pain Print Language Print Language: Japanese Discharge ED Provider: Lázaro Toussaint General Chief Complaint: Chest Pain Stated Complaint: Chest Pain Time Seen by Provider: 01/19/25 01:22 Mode of Arrival: EMS Source of Information: Patient and EMS Description of Symptoms (Recalled from ER Triage Doc. by RN): Pt presents to ED via EMS for chest pain that radiates from L to R. Pt rates pain 10/10 at this time. Pt states he's having R shoulder surgery next week and he's unsure if this is related to that pain. History of Present Illness HPI narrative: 59-year-old male presents to the ER complaining of chest pain radiating from right to left across the back. Patient reports he has upcoming right shoulder surgery and has chronic pain in the right side, however tonight he started having stabbing in the left chest. Worse with deep breathing. He is unsure if it is just radiating due to the severity of his right shoulder pain or if there was something more going on. He states he was scared so he called 911. He reports that pain was 10 out of 10 at that time. It is now 5 out of 10. He received aspirin and nitro as well as fentanyl from EMS prior to arrival. No nausea or vomiting, no headache or dizziness, no numbness, tingling, or weakness. Denies pain in the arm or jaw. No swelling in the feet or legs. No recent illness. No fevers or chills. No other complaints or concerns. Related Data Home Medications ?Medication ?Instructions ?Recorded ?Confirmed budesonide-formoterol HFA 80 80 inh inhalation BID 01/16/24 mcg-4.5 mcg/actuation aerosol inhaler (Symbicort) Previous Rx's ?Medication ?Instructions ?Recorded hydrocodone 5 mg-acetaminophen 325 1 tab PO Q4H PRN Po stop pain #30 12/04/23 mg tablet tabs azithromycin 250 mg tablet 250 mg PO DAILY 4 days #4 t abs 01/19/25 Allergies Allergy/AdvReac Type Severity Reaction Status Date / Time Penicillins Allergy Unknown Unknown Verified 01/16/24 11:40 allergy reaction morphine (MORPHINE) AdvReac Unknown NA-NAUSEA Verified 01/16/24 11:40 [facility] Disclaimer: The information contained in this section may have been updated after the patient was seen, as this information can be updated by other users. Medical History History of lipoma Asthma Left knee pain Finger fracture Migraine Surgical History History of repair of rotator cuff Family History Other Family history of renal failure Social History Smoking Status: Unknown if ever smoked alcohol intake: never substance use type: denies use current occupational status: retired Travel in the last 8 weeks?: None household members: spouse housing: house Have you lived/traveled outside [place] in past 30 days?: No Contact w/someone who lives/traveled outside US past 30 days?: No Exposure to someone with infectious disease in past 14 days?: No Do you have a fever (greater than 100.4 F or 38 C)?: No Have you tested positive for COVID-19?: No Exposed to someone with COVID-19 in past 14 days?: No Do you have a sore throat?: No Do you have a cough?: No Do you have any weakness?: No Do you have any diarrhea?: No Are you experiencing any unusual bleeding?: No Do you have any muscle aches/pain?: No Do you have any abdominal pain?: No Are you experiencing loss of taste or smell?: No Other Medical History Have you received the Flu Vaccine for this season: Yes Have you received the Pneumonia Vaccine: No ROS Obtained: Yes Systems reviewed as appropriate & no additional complaints except as documented per HPI Physical Exam General General appearance: alert and in no apparent distress Head Head exam: atraumatic and normocephalic Eye Eye exam: Present PERRL and EOMI ENT ENT exam: Present mucous membranes moist Neck Neck exam: Present normal inspection and full ROM Chest Chest inspection: Present symmetric chest wall rise; Absent tenderness Respiratory Respiratory exam: Present other (Mild posterior crackles); Absent respiratory distress, wheezes or stridor Cardiovascular Cardiovascular exam: Present regular rate and normal rhythm Abdominal Exam Abdominal exam: Present soft; Absent distention, tenderness, guarding or rebound Extremities Exam Extremities exam: Present full ROM; Absent edema or joint swelling Neurological Exam Neurological exam: Present alert and oriented X3; Absent motor sensory deficit Psychiatric Psychiatric exam: Present normal affect and normal mood Skin Skin exam: Present warm and dry HEART Score HEART Score HEART Score assessment performed?: Yes History (anamnesis): Slightly suspicious ECG: Non-specific disturbance Age: 45-65 years Risk factors: 1-2 risk factors Troponin: </= normal limit HEART Score: 3 Critical Care Critical Care Time Critical Care Time: No Medical Decision Making Medical Records Medical records reviewed: Yes I reviewed the patient's medical records. Rafiq Inquiry Pt receiving controlled substance: No Vital Signs Vital Signs: 01/19/25 00:23 01/19/25 00:30 01/19/25 01:00 Temperature 98.9 F Temperature Source Oral Pulse Rate 92 H 92 H Respiratory Rate 16 Blood Pressure 108/77 L 103/74 L Blood Pressure [Right Arm] 108/77 L Blood Pressure Mean 86 82 Blood Pressure Mean [Right Arm] 87 Blood Pressure Source 02 Sat by Pulse Oximetry 95 92 L 92 L Oxygen Delivery Method Room Air Room Air Room Air 01/19/25 01:27 01/19/25 02:00 01/19/25 02:30 Temperature Temperature Source Pulse Rate 85 84 Respiratory Rate Blood Pressure 111/83 104/75 L 101/72 L Blood Pressure [Right Arm] Blood Pressure Mean 89 84 79 Blood Pressure Mean [Right Arm] Blood Pressure Source 02 Sat by Pulse Oximetry 96 96 Oxygen Delivery Method Room Air Room Air 01/19/25 03:00 01/19/25 03:30 01/19/25 04:00 Temperature Temperature Source Pulse Rate 74 75 Respiratory Rate Blood Pressure 103/71 L 107/79 L 108/74 L Blood Pressure [Right Arm] Blood Pressure Mean 78 87 83 Blood Pressure Mean [Right Arm] Blood Pressure Source 02 Sat by Pulse Oximetry 95 Oxygen Delivery Method Room Air 01/19/25 04:15 01/19/25 04:30 01/19/25 04:30 Temperature Temperature Source Pulse Rate 71 73 Respiratory Rate Blood Pressure 102/74 L Blood Pressure [Right Arm] Blood Pressure Mean 81 Blood Pressure Mean [Right Arm] Blood Pressure Source 02 Sat by Pulse Oximetry 95 96 Oxygen Delivery Method 01/19/25 04:45 01/19/25 05:00 01/19/25 05:00 Temperature Temperature Source Pulse Rate 75 72 Respiratory Rate Blood Pressure 102/69 L Blood Pressure [Right Arm] Blood Pressure Mean 78 Blood Pressure Mean [Right Arm] Blood Pressure Source 02 Sat by Pulse Oximetry 95 97 Oxygen Delivery Method 01/19/25 05:15 01/19/25 06:23 Temperature 98.1 F Temperature Source Oral Pulse Rate 74 73 Respiratory Rate 14 Blood Pressure 108/78 L Blood Pressure [Right Arm] Blood Pressure Mean Blood Pressure Mean [Right Arm] Blood Pressure Source Automatic Cuff 02 Sat by Pulse Oximetry 96 Oxygen Delivery Method Room Air Lab Data Labs: Lab Results 01/19/25 00:39: WBC 8.6, RBC 4.34 L, Hgb 13.3 L, Hct 38.9 L, MCV 89.6, MCH 30.6, MCHC 34.2, RDW 11.9, Plt Count 265, MPV 9.5, Neut % (Auto) 53.8, Lymph % (Auto) 27.2, [place] % (Auto) 10.7 H, Eos % (Auto) 7.8, Baso % (Auto) 0.3, Neut # (Auto) 4.6, Lymph # (Auto) 2.3, [place] # (Auto) 0.9, Eos # (Auto) 0.7 H, Baso # (Auto) 0.0, PT 10.5, INR 0.94, D-Dimer 0.81 H, Sodium 134 L, Potassium 4.2, Chloride 103, Carbon Dioxide 23, Anion Gap 12.2, BUN 20, Creatinine 0.90, Estimated Creat Clear 90, Estimated GFR 86, Est GFR ( Amer) 104, Glucose 142 H, Calcium 9.0, Total Bilirubin 0.4, AST 29, ALT 19, Alkaline Phosphatase 91, Troponin I < 0.01, NT-Pro-B Natriuret Pep 98.2, Total Protein 7.2, Albumin 4.2, Globulin 3.0, Albumin/Globulin Ratio 1.4, HCV Ab HENRY w/Rflx PCR Qn Negative, HIV Ag/Ab Combo Qual Negative 01/19/25 04:48: Troponin I < 0.01 01/19/25 00:39 01/19/25 00:39 Response Orders (Tests/Meds): ED MEDICATIONS Discontinued Medications Generic Name Dose Route Start Last Admin Trade Name Freq PRN Reason Stop Dose Admin Aspirin 324 mg 01/19/25 01:18 01/19/25 01:27 Aspirin 81mg Chewable Tablet PO 01/19/25 01:19 Not Given ONCE ONE Azithromycin 500 mg 01/19/25 06:05 01/19/25 06:21 Azithromycin 250mg Tablet PO 01/19/25 06:06 500 mg ONCE ONE Administration Belladonna Alkaloids 60 ml 01/19/25 03:19 01/19/25 03:28 Belladonna Alkaloids 60 Ml Ml PO 01/19/25 03:20 60 ml ONCE ONE Administration Iopamidol 70 ml 01/19/25 03:48 01/19/25 03:50 Iopamidol-370 (76%);100ml Bottle IV 01/19/25 03:49 70 ml ONCE ONE Administration Ketorolac Tromethamine 30 mg 01/19/25 03:19 01/19/25 03:28 Ketorolac 30mg/Ml Vial IV 01/19/25 03:20 30 mg ONCE ONE Administration Nitroglycerin 0.4 mg 01/19/25 01:18 Nitroglycerin 0.4mg Sl Tablet SL 01/20/25 01:18 Q5MINP PRN Chest Pain Sodium Chloride 50 ml 01/19/25 03:48 01/19/25 03:50 0.9 % Sodium Chloride 50 Ml Vial IV 01/19/25 03:49 50 ml ONCE ONE Administration Sodium Chloride 10 ml 01/19/25 03:48 01/19/25 03:50 Sodium Chloride 0.9% 10ml Syr (Rad Only) IV 01/19/25 03:49 10 ml ONCE ONE Administration ORDERS Category Date Time Status CT angio chest PE protocol Stat Cat Scan 01/19/25 03:06 Completed XR chest 2V Stat Exams 01/19/25 01:18 Completed Complete Blood Count Auto Diff Stat Lab 01/19/25 00:39 Completed Comprehensive Metabolic Panel Stat Lab 01/19/25 00:39 Completed D-Dimer Stat Lab 01/19/25 00:39 Completed HIV Combo Stat Lab 01/19/25 00:39 Completed Hepatitis C Ab Qual. W/ RFX Stat Lab 01/19/25 00:39 Completed NT Pro Brain Natriuretic Pep. Stat Lab 01/19/25 00:39 Completed Prothrombin Time INR Stat Lab 01/19/25 00:39 Completed Troponin I Q3H Lab 01/19/25 04:48 Completed Troponin I Stat Lab 01/19/25 00:39 Completed MDM Narrative Medical Decision Narrative: In summary, this 59-year-old male presents to the emergency department today with chest pain radiating across his back from right to left worse with deep breathing. On initial evaluation patient is hemodynamically stable, afebrile, GCS 15, very faint crackles at the lung bases with good air movement, saturating well on room air, no adventitious sounds, no tenderness of the chest, no evidence of traumatic injury, no peripheral edema, no neurologic deficits, remainder of exam benign. Differential diagnosis includes but is not limited to ACS, PE, pneumonia, pneumothorax, esophageal spasm, electrolyte abnormality, among others. Based on these concerns, I ordered hematologic and serum labs, cardiac workup, D-dimer, chest x-ray initially. ECG personally interpreted demonstrates sinus tachycardia with occasional PVC, rate 105, normal axis, normal NJ and QTc, slight ST depressions in the inferior leads but no STEMI. Patient received aspirin, fentanyl, and nitro prior to arrival from EMS. In the ER I had ordered aspirin but it was not administered because he had received it prior to arrival, nitro was not administered because pressure was in the low 100s. He did receive Toradol and GI cocktail because the initial interventions had not relieved his pain from EMS. After use of these medications, he had significant improvement. Labs personally reviewed demonstrate no leukocytosis, mild anemia nonactionable, normal platelets, PT/INR nonactionable, D-dimer 0.81. Chest x-ray personally interpreted demonstrates slight abnormality in the area of the left lower lobe, it is unclear to me what exactly this is, radiology read comments that could be infiltrate and effusion. With the D-dimer being somewhat elevated and this abnormality on x-ray I believe it is appropriate to do CT PE on this patient to rule out PE as well as further evaluate the lung parenchyma and have a better look at the intrathoracic contents. CMP personally interpreted demonstrates no acutely actionable abnormalities, initial troponin undetectably low less than 0.01. Patient was placed into ED observation at 0230 for repeat troponin to rule out evolving SC and preclude unnecessary admission. CTA PE personally turbid and demonstrates no segmental or subsegmental PE, trace left pleural effusion, there is posterior abnormalities in both lungs that appears to be atypical infection on my personal interpretation. Radiology read comments on this only in the left lung and calls it atelectasis though infection cannot be excluded. With his symptoms and findings on exam, I believe this represents atypical pneumonia. Repeat troponin undetectable less than 0.01. More than 6 hours after the time of patient's onset of pain which is very reassuring against acute cardiac pathology given the duration of symptoms. Repeat ECG was performed personally interpreted demonstrating sinus rhythm rate 71, normal axis, normal NJ and QTc, no dynamic changes, no STEMI. Patient is resting comfortably since receiving Toradol and GI cocktail, azithromycin administered for atypical infection. Prescription for azithromycin sent to his pharmacy of choice. Results were reviewed with the patient. I believe he is appropriate for discharge at this time and he is comfortable with this plan. Patient was given instructions on symptomatic management, follow up instructions, and return precautions for the emergency department. Patient indicated understanding and was discharged in stable condition.
[2025-01-19 01:28] LABS: Hematocrit 38.9 % (42.0-52.0); Hemoglobin 13.3 g/dL (14.1-18.0); Immature Granulocytes % 0.2 %; Mean Corpuscular HGB Conc 34.2 g/dL (31.8-35.4); Mean Corpuscular Hemoglobin 30.6 pg (27.0-31.2); Mean Corpuscular Volume 89.6 fl (80-94); Nucleated Red Blood Cells % 0 %; Platelet Count 265 K/mm3 (142-424); Red Blood Count 4.34 M/mm3 (4.60-6.20); Red Cell Distribution Width-SD 39.0 fL; White Blood Count 8.6 K/mm3 (4.8-10.8)
[2025-01-19 01:32] LABS: Alanine Aminotransferase 19 U/L (12-78); Albumin Level 4.2 g/dl (3.5-5.0); Albumin/Globulin Ratio 1.4 (1.1-1.8); Alkaline Phosphatase 91 U/L (38-126); Anion Gap 12.2 mEq/L (5-15); Aspartate Amino Transferase 29 U/L (17-59); Bilirubin,Total 0.4 mg/dl (0.2-1.3); Blood Urea Nitrogen 20 mg/dl (9-20); Calcium 9.0 mg/dl (8.4-10.2); Carbon Dioxide 23 mmol/L (22.0-30.0); Chloride 103 mmol/L (98-107); Creatinine Clearance Estimated 90 mL/min (50-200); Creatinine,Serum 0.90 mg/dl (0.66-1.25); Estimated Glomerular Filt Rate 86 ml/min (>60); GFR (African American) 104 ML/MIN (>60); Globulin 3.0 g/dL (1.3-3.2); Glucose 142 mg/dl (74-100); Potassium 4.2 mmoL/L (3.5-5.1); Sodium 134 mmol/L (136-145); Total Protein,Serum 7.2 g/dl (6.3-8.2)
[2025-01-19 01:36] LABS: INR 0.94 (0.9-1.1); Prothrombin Time 10.5 seconds (10.1-12.5)
[2025-01-19 01:44] LABS: D-Dimer 0.81 ug/mL (0.0-0.5); NT Pro Brain Natriuretic Pep. 98.2 pg/mL (0-125); Troponin I < 0.01 ng/ml (0.00-0.034)
[2025-01-19 02:22] LABS: Hepatitis C Ab Qual. W/ RFX NEGATIVE (Negative)
--- NOTE | 2025-01-19 03:06 | CT_ITS ---
PROCEDURE INFORMATION: Exam: CTA Chest With Contrast Exam date and time: 01/19/2025 3:40 AM Age: 59 years old Clinical indication: Pain; Chest pressure; Additional info: L cp, dimer elevated, ? pna and effusion on XR TECHNIQUE: Imaging protocol: Computed tomographic angiography of the chest with contrast. Exam focused on the arteries. 3D rendering (Not supervised by radiologist): MIP and/or 3D reconstructed images were created by the technologist. Radiation optimization: All CT scans at this facility use at least one of these dose optimization techniques: automated exposure control; mA and/or kV adjustment per patient size (includes targeted exams where dose is matched to clinical indication); or iterative reconstruction. Contrast material: ISOVUE; Contrast volume: 70 ml; Contrast route: INTRAVENOUS (IV); COMPARISON: CT ANGIO CHEST PE PROTOCOL 08/04/2023 9:32 PM FINDINGS: Pulmonary arteries: No pulmonary embolus. Aorta: Unremarkable. No aortic aneurysm. No aortic dissection. Lungs: Left upper lobe calcified granuloma. Hypoventilatory changes. Left lower lobe atelectasis, cannot exclude a superimposed infectious process. Pleural spaces: Small left-sided pleural effusion. No pneumothorax. Heart: Unremarkable. No cardiomegaly. No pericardial effusion. Lymph nodes: Calcified mediastinal lymph nodes. Bones/joints: Chronic T11 compression fracture. 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 IMPRESSION: 1. No pulmonary embolus. 2. Left lower lobe atelectasis, cannot exclude a superimposed infectious process. 3. Small left-sided pleural effusion.
[2025-01-19] MEDS: BELLADONNA ALKALOIDS 60 ML ML PO (03:28)
[2025-01-19] MEDS: KETOROLAC 30MG/ML VIAL 30 MG IV (03:28)
--- NOTE | 2025-01-19 03:49 | ECG_ITS ---
APPROVED REPORT Exam: Resting ECG HR:71 bpm ECG Measurements Heart Rate 71 AXES MD 166 P 63 QRSd 98 QRS 39 QT 389 T -1 QTc 412 Conclusion SINUS RHYTHM NONSPECIFIC ST & T-WAVE ABNORMALITY No STEMI Electronically signed by : UMER MORALES, 01/19/2025 06:01:00
[2025-01-19] MEDS: SODIUM CHLORIDE 0.9% 10ML SYR (RAD ONLY) 10 ML IV (03:50)
[2025-01-19] MEDS: 0.9 % SODIUM CHLORIDE 50 ML VIAL IV (03:50)
[2025-01-19] MEDS: IOPAMIDOL-370 (76%);100ML BOTTLE 70 ML IV (03:50)
[2025-01-19 06:04] LABS: Troponin I < 0.01 ng/ml (0.00-0.034)
[2025-01-19] MEDS: AZITHROMYCIN 250MG TABLET 500 MG PO (06:21)
== END 2025-01-19 06:30 | disposition home or self-care (01) ==
PROVIDERS: Emergency Provider Emergency Medicine; PCP Family Medicine
DX: J18.9 Pneumonia, unspecified organism (principal); D64.9 Anemia, unspecified; Z88.0 Allergy status to penicillin; Z88.5 Allergy status to narcotic agent
CPT/HCPCS: 71046; 71275; 80053; 83880; 84484; 85025; 85378; 85610; 86803; 87389; 93005; 96374; 99285; J1885; Q9967